=== PATIENT | male | born 1975 | race Caucasian/White ===

== ENCOUNTER 2017-05-11 13:01 | Emergency (ER) | payer MEDICARE, MEDICAID, SELFPAY ==
[2017-05-11 13:01] VITALS: BP 156/91; PULSE 133; RESP 16; TEMP 36.6; O2SAT 98; BMI 33.5
--- NOTE | 2017-05-11 13:20 | ED.DCSUM_ITS ---
- ER Visit Summary Date of Service: 05/11/17 Chief Complaint: Nausea and vomiting History of Present Illness: The patient is a 41 M who presents with nausea and vomiting. This started this morning. He had 3 episodes at home. He has not had any abdominal pain. Denies any diarrhea or constipation. He did have a bowel movement this morning. Family states he had an EGD at the [facility] as an outpatient last week and they said it showed something about the patient having a blockage and not being able to poop right Physical Examination: Vital signs reviewed. HEENT exam unremarkable. Heart is tachycardic and regular rhythm without murmurs. Lungs are clear to auscultation. Abdomen is soft and nontender. Extremities reveal no edema. Skin exam normal. Neurologic exam normal. Test Results: Laboratory studies reveal sodium 135, ALT of 130 and an AST 117 Emergency Department Course and Treatment: Patient was given IV fluids and Zofran. His liver enzymes are slightly elevated but they were as well a couple of years ago. His bilirubin is normal. I am no concern for gallbladder disease. He has no pain. The patient feels better after fluids and Zofran. I will give him Zofran for home. He will follow-up with his PCP. Treatment Plan: [] Disposition: Discharge Impression: Nausea and vomiting This note was generated with [employer] dictation software. It may contain incorrect words, spelling, and punctuation that were not noted in review of the chart prior to signing ED Disposition - Plan for ED Patient: Chief Complaint: Nausea/Vomiting Referrals: Erin Ji MD [Primary Care Provider] -
[2017-05-11] MEDS: 0.9% Normal Saline 1,000 ML 1000 ML IV (13:34)
[2017-05-11] MEDS: Ondansetron 4 MG/2 ML Vial IV (13:35)
[2017-05-11 13:54] LABS: Absolute Lymphocyte Count 1.95 X10^3/ul (0.83-4.51); Absolute Neutrophil Count 6.7 X10^3/uL (2.0-7.7); Basophil# 0.03 X10^3/uL; Basophil% 0.3 % (0-1); Eosinophil# 0.13 X10^3/uL; Eosinophils% 1.4 % (0-5); Hemoglobin 12.5 g/dl (13.0-16.5); Lymphocyte # 1.95 X10^3/ul (4.0); Lymphocyte % 20.4 % (19-41); Mean Corp Hgb Conc 35.7 g/gl (32-36); Mean Corpuscular Hgb 32.1 pg (27.0-32.0); Mean Platelet Vol. 9.1 fl (6.2-12.0); Monocyte# 0.67 X10^3/uL; Neutrophil # 6.74 X10^3/uL (2.7-7.7); Neutrophil % 70.7 % (47-70); Platelet Count 204 K/mm3 (150-450); RBC Distribution Width CV 12.3 % (11.6-14.6); RBC Distribution Width SD 39.9 fl (35.1-43.9); Red Blood Count 3.89 M/mm3 (4.6-6.2); White Blood Count 9.5 K/mm3 (4.4-11.0)
[2017-05-11 13:58] LABS: POSITIVE COUNT NO; POSITIVE DIFFERENTIAL NO; POSITIVE MORPHOLOGY NO
[2017-05-11 14:07] LABS: ALB/GLOB Ratio 0.8 RATIO (0.9-2.4); AST(SGOT) 117 U/L (15-37); Alanine Aminotransfer ALT/SGPT 138 U/L (16-61); Albumin, Serum 3.5 g/dL (3.2-5.0); Alkaline Phosphatase 76 U/L (45-117); Anion Gap 9 (5-15); BUN 21 mg/dL (7-18); BUN/Creat Ratio 24.9 RATIO (10-20); Calcium,Total 9.6 mg/dL (8.5-10.1); Chloride 99 mmol/L (98-107); Creatinine, Serum 0.84 mg/dL (0.70-1.30); EST Glomerular Filtration Rate 106 mL/min (>60); Est Glom Filt Rate - Afr Amer 128 mL/min (>60); Estimated Creatinine Clearance 118.29 ml/min; Globulin 4.3 g/dL (2.2-4.2); Glucose 191 mg/dL (74-106); Lipase 119 U/L (73-393); Protein, Total 7.8 g/dL (6.4-8.2); Sodium Level 135 mmol/L (136-145)
--- NOTE | 2017-05-11 14:59 | ED.DEP ---
ED Disposition - Plan for ED Patient: Disposition: Home or Assisted Living Chief Complaint: Nausea/Vomiting Instructions: ED Nausea Vomiting Prescriptions: Ondansetron [Zofran Odt] 4 mg PO Q8H PRN PRN #10 tab PRN Reason: Nausea Referrals: Erin Ji MD [Primary Care Provider] -
[2017-05-11 15:01] VITALS: PULSE 120; RESP 18; O2SAT 94
[2017-05-11 15:10] VITALS: BP 170/94; PULSE 118; RESP 16; O2SAT 96
--- NOTE | 2017-05-11 15:10 | ED.RN ---
REVIEWED D/C INSTRUCTIONS, FOLLOW UP CARE, PRESCRIPTION, AND S/S THAT WOULD WARRANT A RETURN TO THE ED WITH PT. PT VERBALIZED AN UNDERSTANDING AND DENIES FURTHER QUESTIONS FOR THIS RN PT SKIN P/W/D, RESP EVEN AND UNLABORED, PT A&O X 3, NO DISTRESS NOTED. PT AMBULATED OUT OF ED, GAIT STEADY.
== END 2017-05-11 15:12 | disposition home or self-care (01) ==
PROVIDERS: Emergency Provider Emergency Medicine; Family Provider Internal Medicine; PCP Internal Medicine
DX: R11.2 Nausea with vomiting, unspecified (principal); E11.9 Type 2 diabetes mellitus without complications; Z79.4 Long term (current) use of insulin; Z79.899 Other long term (current) drug therapy
CPT/HCPCS: 80053; 83690; 85025; 96361; 96374; 99283; J7030; A4216; J2405

== ENCOUNTER 2017-10-14 16:31 | Emergency (ER) | payer MEDICARE, MEDICAID, SELFPAY ==
[2017-10-14 16:32] VITALS: BP 146/84; PULSE 108; RESP 16; TEMP 36.3; O2SAT 97; BMI 34.5
[2017-10-14] MEDS: 0.9% Normal Saline 1,000 ML 1000 ML IV (17:20)
--- NOTE | 2017-10-14 17:30 | US_ITS ---
STUDY: ABDOMINAL ULTRASOUND - RIGHT UPPER QUADRANT REASON FOR VISIT: Male, 41 years old. Right upper quadrant pain TECHNIQUE: Ultrasound evaluation of the right upper quadrant was performed with real-time and static ospina-scale imaging. TECHNICAL QUALITY: Adequate. COMPARISON: None. FINDINGS: Liver: The liver measures 15.6 cm. There is normal echogenicity of the liver. The bile ducts are within normal limits. There is hepatic color flow. The direction of portal flow is hepatopetal. There is no demonstrated mass lesion. Gallbladder: Normal distended gallbladder. The gallbladder wall measures 1.7 mm. There is a negative sonographic Moyer's sign. There is no pericholecystic fluid. There are multiple gallstones with sludge. Common Bile Duct (C.B.D.): The common bile duct measures 3.3 mm. Pancreas: Limited of the pancreas. Right Kidney: Normal size of the right kidney. The right kidney measures 13.3 x 5.8 x 5.9 cm. Normal renal cortex. The right cortex measures 2.8 cm. There is no demonstrated renal mass or cyst. There is no right hydronephrosis. US/Gallbladder IMPRESSION: Cholelithiasis with gallbladder sludge. Electronically Signed: Anders De La Cruz DO at 18:14 EDT Tel [phone], Service support ,
[2017-10-14 17:42] LABS: Mucous, Urine 0 SEEN /hpf (<or=2+); Red Blood Cells-Urine 0 SEEN /hpf (0-5); Squamous Epithelial Cells - UA 0 SEEN /hpf (0-5); White Blood Cells 0 SEEN /hpf (0-5)
[2017-10-14 17:51] LABS: Color, Urine Yellow (Yellow); Glucose, Dipstick 1000 mg/dl (Normal); Ketone-Dipstick Negative (Negative); Leukocyte Esterase-Dipstick Negative /ul (Negative); Nitrite-Dipstick Negative (Negative); Occult Blood-Urine Negative /ul (Negative); Protein-Dipstick 30 mg/dl (Negative); Specific Gravity, Urine 1.015 (1.002-1.030); Urine Bilirubin Dipstick Negative (Negative); Urine Clarity Sl. Cloudy (Clear); Urine Urobilinogen Normal (Normal)
[2017-10-14 17:52] LABS: Absolute Lymphocyte Count 2.27 X10^3/ul (0.83-4.51); Absolute Neutrophil Count 5.6 X10^3/uL (2.0-7.7); Basophil# 0.03 X10^3/uL; Basophil% 0.4 % (0-1); Eosinophil# 0.05 X10^3/uL; Eosinophils% 0.6 % (0-5); Hematocrit 37.5 % (40-54); Hemoglobin 13.1 g/dl (13.0-16.5); Lymphocyte # 2.27 X10^3/ul (4.0); Lymphocyte % 26.9 % (19-41); Mean Corp Hgb Conc 34.9 g/gl (32-36); Mean Corpuscular Hgb 31.9 pg (27.0-32.0); Mean Corpuscular Volume 91.2 fL (80-94); Mean Platelet Vol. 9.2 fl (6.2-12.0); Monocyte# 0.45 X10^3/uL; Monocyte% 5.3 % (0-10); Neutrophil # 5.64 X10^3/uL (2.7-7.7); Neutrophil % 66.7 % (47-70); Platelet Count 211 K/mm3 (150-450); RBC Distribution Width CV 13.1 % (11.6-14.6); RBC Distribution Width SD 43.1 fl (35.1-43.9); Red Blood Count 4.11 M/mm3 (4.6-6.2); White Blood Count 8.5 K/mm3 (4.4-11.0)
[2017-10-14 17:54] LABS: POSITIVE COUNT NO; POSITIVE DIFFERENTIAL NO; POSITIVE MORPHOLOGY NO
[2017-10-14 17:59] LABS: AST(SGOT) 51 U/L (15-37); Alanine Aminotransfer ALT/SGPT 92 U/L (16-61); Albumin, Serum 3.7 g/dL (3.2-5.0); Alkaline Phosphatase 87 U/L (45-117); Anion Gap 8 (5-15); BUN 38 mg/dL (7-18); BUN/Creat Ratio 31.7 RATIO (10-20); Bilirubin, Direct 0.12 mg/dL (0.00-0.30); Calcium,Total 9.6 mg/dL (8.5-10.1); Chloride 97 mmol/L (98-107); EST Glomerular Filtration Rate 70 mL/min (>60); Est Glom Filt Rate - Afr Amer 85 mL/min (>60); Estimated Creatinine Clearance 80.19 ml/min; Globulin 4.7 g/dL (2.2-4.2); Glucose 338 mg/dL (74-106); Lipase 332 U/L (73-393); Potassium 4.6 mmol/L (3.5-5.1); Protein, Total 8.4 g/dL (6.4-8.2); Sodium Level 132 mmol/L (136-145)
[2017-10-14 18:21] LABS: Bacteria 1+ /hpf (None Seen); Hyaline Cast 0-5 SEEN /lpf (0-5)
--- NOTE | 2017-10-14 18:32 | ED.VISSUMM ---
- ER Visit Summary Date of Service: 10/14/17 Chief Complaint: Abdominal pain History of Present Illness: The patient is a [address] Ji. He is a poor informant. The majority of history is through family members with him. They report that his abdominal pain for approximately 3 months. Patient reports is not having any pain now. He denies any nausea or vomiting. He reports he has diarrhea alternating with constipation. His last bowel was yesterday. He reports he last vomited earlier this week after eating hot dogs. His most severe symptoms have been after eating hero house. Family does report that he has a history of fatty food intolerance. Patient denies any spotty seafood intolerance. Physical Examination: Vitals: Stable. Afebrile. General: Well-nourished and well-developed. Head: Normocephalic atraumatic. Neck: Supple, no lymphadenopathy. No JVD. Nontender. Cardiovascular: Regular rate and rhythm. No murmurs. Respiratory: No respiratory distress. Clear to auscultation bilaterally. Abdominal: Soft, nontender, nondistended, normal bowel sounds. No guarding, rebound, or peritoneal signs. Back: Nontender. Extremities: Nontender, no edema. Skin: Normal color, no rash. Neurologic: Alert and oriented ?3. Cranial nerves II through XII are intact. Normal strength and sensation. Psych: Normal affect. Test Results: CBC is more for hematocrit 37.5. Chem-7 is more for sodium 132, chloride 97, glucose 338, BUN 38, BUN/creatinine ratio 31.7. LFTs marked total protein 8.4 globulin 4.7. ALT is 92, AST is 51. Lipase is normal. UA is negative. Right upper quadrant ultrasound shows normal distended gallbladder with wall of 1.7 mm. No pericholecystic fluid. No Moyer sign. There are multiple gallstones with sludge. The common bile duct is 3.3 mm. Emergency Department Course and Treatment: Patient refused pain or nausea medications. He is resting comfortably. Treatment Plan: Patient was discussed with Dr. Contreras. He will be discharged instructions follow-up in 3-5 days for repeat exam. Be placed on Zofran for his nausea. I do not think putting him on pain medications is in his best interest. Return to the emergency department for any worsening symptoms. Disposition: To home in improved and stable condition. Impression: 1. Abdominal pain, uncertain cause. 2. Gallstones. This note was generated with [employer] dictation software. It may contain incorrect words, spelling, and punctuation that were not noted in review of the chart prior to signing ED Disposition - Plan for ED Patient: Disposition: Home or Assisted Living Chief Complaint: Abd Pain Instructions: ED Abdominal Pain Gallstone Poss Prescriptions: Ondansetron [Zofran Odt] 4 mg PO Q8H PRN PRN #10 tablet PRN Reason: Nausea Referrals: Cris Anna MD [STAFF PHYSICIAN] - 5-7 Days
[2017-10-14 18:33] VITALS: BP 122/80; PULSE 101; RESP 16; O2SAT 97
== END 2017-10-14 18:45 | disposition home or self-care (01) ==
PROVIDERS: Emergency Provider Emergency Medicine; Family Provider Internal Medicine; PCP Internal Medicine
DX: K80.80 Other cholelithiasis without obstruction (principal); R10.11 Right upper quadrant pain; E11.9 Type 2 diabetes mellitus without complications; I10 Essential (primary) hypertension; E78.00 Pure hypercholesterolemia, unspecified; Z79.4 Long term (current) use of insulin; Z79.84 Long term (current) use of oral hypoglycemic drugs; Z79.899 Other long term (current) drug therapy
CPT/HCPCS: 76705; 80048; 80076; 81001; 83690; 85025; 96360; 99283; J7030

== ENCOUNTER 2017-10-27 05:25 | Day surgery (SDC) | payer MEDICARE, MEDICAID, SELFPAY ==
[2017-10-24 11:26] VITALS: BP 118/74; PULSE 102; RESP 16; TEMP 36.8; O2SAT 97; BMI 34.0
--- NOTE | 2017-10-24 11:31 | SDCEKG_ITS ---
Test Reason : Blood Pressure : / mmHG Vent. Rate : 103 BPM Atrial Rate : 103 BPM P-R Int : 162 ms QRS Dur : 094 ms QT Int : 322 ms P-R-T Axes : 054 033 057 degrees QTc Int : 421 ms Sinus tachycardia Otherwise normal ECG Confirmed by FAVIO MOBLEY, KVNG ([id number]), business editor IVIS BAE ([id number]) on 10/25/2017 1:28:37 PM Referred By: Cris Anna Confirmed By:KVNG STAHL MD
[2017-10-24 12:31] LABS: Anion Gap 8 (5-15); BUN 24 mg/dL (7-18); BUN/Creat Ratio 21.4 RATIO (10-20); Calcium,Total 9.1 mg/dL (8.5-10.1); Chloride 102 mmol/L (98-107); Creatinine, Serum 1.12 mg/dL (0.70-1.30); EST Glomerular Filtration Rate 76 mL/min (>60); Est Glom Filt Rate - Afr Amer 92 mL/min (>60); Estimated Creatinine Clearance 85.92 ml/min; Glucose 308 mg/dL (74-106); Potassium 4.6 mmol/L (3.5-5.1); Sodium Level 137 mmol/L (136-145)
[2017-10-27] VITALS (12 sets, daily range): BP systolic 105–160; BP diastolic 65–91; PULSE 96–109; RESP 16–20; TEMP 35.9–36.5; O2SAT 92–100; BMI 32.8
[2017-10-27 06:30] LABS: Bedside Glucose 323 mg/dL (70-110)
[2017-10-27] MEDS: Insulin Lispro 100 UNIT/ML INSULN.PEN 8 UNIT SC (07:10)
--- NOTE | 2017-10-27 07:30 | GALL_PTH ---
PATIENT: MICAELA WAGNER LOC: [facility] [place] U#:[id number] AGE/SX: 41/M ROOM: RE10/27/[address]: Dr. Cris Anna MD : 1975 BED: DIS: 10/27/2017 SPEC #: [id number] RECD: 10/27/17 10:52 STATUS: RENE RE #: [id number] NANY: 10/27/17 07:[address]: Cris Anna DEPT: SURGICAL PATHOLOGY RECD BY: Fernandez Montemayor ENTERED: 10/27/17 11:57 SP TYPE: STACIA SHULTZ DR: Dr. Erin Ji MD Tissues: Gallbladder, NOS Procedures: Surgery Specimen Level III HEADER OPERATION: Laparoscopic cholecystectomy PRE-OP DIAGNOSIS: Calculus of gallbladder without cholecystitis and obstruction TISSUE SUBMITTED: Gallbladder MICROSCOPIC DIAGNOSIS Gallbladder: Chronic cholecystitis and cholelithiasis. SJ:norma 10/28/17 MICROSCOPIC DESCRIPTION Slides are reviewed. GROSS DESCRIPTION Received is one container labeled with the patient's name and designated gallbladder. The specimen consists of a gallbladder measuring 8 cm in length and 3.5 cm in diameter. An increased amount of subserosal fat is noted. The external surface is pink-campbell, smooth and glistening for the most part. Focally it is granular, hemorrhagic and contains cautery artifact. The gallbladder contains green-yellow mucoid bile and multiple black irregular friable stones and sludge material. The stones measure in aggregate 1 x 0.5 x 0.3 cm and 0.2 to 0.4 cm in greatest dimension. The mucosa is bile-stained and without any mass lesions. The gallbladder wall measures up to 0.3 cm in thickness. Instrument Lens Inspector sections from the gallbladder and the cystic duct are submitted in one cassette. / SJ:norma 10/27/17 TC:3 CPT: 74477
[2017-10-27 08:10] LABS: Bedside Glucose 292 mg/dL (70-110)
--- NOTE | 2017-10-27 08:21 | PCM.PN.BLA ---
Progress Note PAT nurses had told my clinic nurses that procedure was cancelled. I spoke with patient, his father, and his fiance - and explained the above. Patient's father questions the risk of diabetes - I explained that patient is at increased risk for infection and wound healing problems because his diabetes is out of control. I have offered to postpone surgery until the patient's diabetes is under better control, but the patient refuses this. The father states that the patient continues to throw up and can't take his meds because of this and that is why he needs surgery. I have explained to them that the patient has diabetic gastroparesis and that is why he is throwing up and that his glucoses are too high because of his po intake. The family states that his glucoses are out of control because of his diabetes. I have told them that I will offer to remove the gallbladder and with the following risks of surgery: I have counseled the patient as to the risks of the procedure, including but not limited to: infection, bleeding, injury to any blood vessels/nerves, scar tissue, injury to any intraabdominal organs, injury to kidney/ureters, injury to bowel/bladder, injury to the common bile duct/biliary tree, bile leakage, intraabdominal abscess/bleeding, hernias at incisional sites, wound infections, possible open procedure, complications of anesthesia, postoperative pneumonia/cardiac problems/blood clots etc. the patient understands. I have told them that removing the gallbladder may not alleviate his emesis problems and/or correct his diabetes problems. They state that they understand. I have answered all questions to their and they have no further questions.
--- NOTE | 2017-10-27 08:30 | OP.PN_ITS ---
Immediate Post-Op Note Date of Procedure: 10/27/17 Primary Surgeon/Physician: Cris Anna tooth cutter clutch: America Alves Pre-Operative Diagnosis: cholelithiasis Post-Operative Diagnosis: same Surgery/Procedure Performed:: laparoscopic cholecystectomy Description of Surgical Findings:: cholelithiasis Estimated Blood Loss: < 5 ml Specimen's removed: gallbladder and contents Type of Anesthesia:: General ASA Class: ASA3 Severe Disease - Admit VTE Documentation VTE Present on Admission: Yes VTE Mechan Device Prophylaxis: SCD's
--- NOTE | 2017-10-27 08:32 | PCM.DC.GB ---
Discharge Diet: - - diabetic diet Discharge Activity: Return to Normal Activity, May not drive while taking narcotic pain medications. Lifting Restrictions: no lifting greater than 20 pounds for 2 weeks Call your doctor if your incision/area has: Continuous Slow Oozing, Foul Smelling Discharge Call your doctor if you observe: Fever of 101 or Higher Additional Dressing/Incision Instructions:: Leave dressings in place. May get wet in shower. Do not soak - no tub baths/swimming. If dressings become soiled or saturated - may remove - leave wound open to air (do not place bandaids over the wounds), leave steristrips in place Allergies/Adverse Reactions: Allergies liraglutide [From Victoza] Allergy (Severe, Verified 10/24/17 11:05) Vomiting Medications to take at Discharge Enalapril Maleate [Vasotec] 20 mg PO DAILY 05/15/15 insulin aspart U-100 100 unit/mL subcutaneous pen 20 unit SC BID ml 04/07/17 liraglutide 0.6 mg/0.1 mL (18 mg/3 mL) subcutaneous pen injector 0.6 mg SC QDAY 04/07/17 metformin 1,000 mg tablet 500 mg PO DAILY 04/07/17 Insulin Degludec [Tresiba Flextouch U-100] 80 unit SQ DAILY 05/11/17 Omeprazole [Omeprazole] 40 mg PO BID 05/11/17 Atorvastatin Calcium [Lipitor] 20 mg PO QHS 10/14/17 Ondansetron [Zofran Odt] 4 mg PO Q8H PRN PRN #10 tablet 10/14/17 Metoclopramide [Reglan] 10 mg PO TID 10/24/17 Hydrocodone Bitart/Apap 5-325 [[place] 5MG-325MG] 1 tab PO Q6H PRN PRN 5 Days #20 tab 10/27/17 The following prescriptions were given: Hydrocodone Bitart/Apap 5-325 [[place] 5MG-325MG] 1 tab PO Q6H PRN PRN 5 Days #20 tab PRN Reason: Pain Primary Care Physician: Erin Ji MD [Primary Care Provider] - Test Results: Test results from this visit will be discussed in further detail at your follow-up appointment, if applicable. Please Follow Up With: Cris Anna MD - call When: to be seen in 7-10 days, please call for date and time, thank you
[2017-10-27] MEDS: Bupiv/Epi 0.5% Mpf 30 ML Vial (09:10)
--- NOTE | 2017-10-27 09:36 | OP.PCM_ITS ---
Report of Operation Date of Procedure: 10/27/17 Pre-Operative Diagnosis: cholelithiasis Post-Operative Diagnosis: same Surgery/Procedure Performed:: laparoscopic cholecystectomy Description of Surgical Findings:: cholelithiasis, minimal cholecystitis vice president of compliance: America Alves Type of Anesthesia:: General Anesthesiologist: Danish Bocanegra Specimen's removed: gallbladder and contents Estimated Blood Loss (mL): < 5 ml Fluids Replaced: 1500 ml RL Description of Procedure: After informed consent was given, the patient was brought to the Operating Room and placed in the supine position. Appropriate time out protocol was followed. The patient was then placed under general endotracheal anesthesia. The abdomen was then prepped with a sterile surgical skin preparation and sterile surgical drapes were placed. A skin fold superior to the umbilical dimple was grasped with penetrating clamps and the skin and subcutaneous tissues were infiltrated with local anesthetic. A skin incision was then made with a 15 blade scalpel. The anterior abdominal wall was elevated and a Veress needle was carefully inserted into the intraabdominal cavity. It was checked to be in the proper position with a normal saline drop test. A CO2 pneumoperitoneum was then created. Once this was achieved, then the Veress needle was removed and an 11mm trocar was placed in its stead. A 10mm laparoscope was then inserted into the trocar and careful attention was directed to the intraabdominal contents. There was no evidence of injury to any intraabdominal organs from insertion of the Veress needle or the trocar. Under direct visualization, a 5mm subxiphoid trocar and two lateral 5mm right subcostal trocars were placed. The skin and subcutaneous tissues at these sites were infiltrated with local anesthetic prior to placement of these trocars. Attention was then directed to the right upper quadrant of the abdomen. The gallbladder was noted. Graspers were placed in the lateral trocars to grasp the distal aspect of the gallbladder and direct it cephalad and to grasp the gallbladder at Francois?s pouch and direct it laterally. Dissection then began on the proximal gallbladder continuing down to the area of the triangle of Calot to bluntly dissect out the cystic duct. The neck of the gallbladder was identified and blunt dissection continued to dissect out a segment of the cystic duct. A clip was then placed on the neck of the gallbladder. Two clips were placed proximally and the cystic duct was then transected. The cystic artery was visualized and bluntly isolated and then two clips were placed proximally and one clip distally and then it was transected between the proximal and distal clips. The gallbladder was then from the liver bed using electrocautery and thus able to be brought out of the umbilical port. It was then forwarded to pathology for analysis. The liver bed was carefully examined. There was no evidence of bile leakage or bleeding. The cystic duct stump and cystic artery stump had their clips intact and there was no evidence of bile leakage or bleeding. The remainder of the abdomen was grossly normal. The CO2 was released and all trocars removed intact. The periumbilical fascia was approximated with a [id number] 0 vicryl suture. All skin incision were closed with 4-0 monocryl in a subdermal fashion. Cavilol and Steristrips were used to reinforce the skin closure. Sterile dressings were applied to all wounds. The patient was extubated and brought to the Recovery Room in stable condition. - Complications none noted - Admit VTE Documentation VTE Present on Admission: Yes VTE Mechan Device Prophylaxis: SCD's
[2017-10-27 10:01] LABS: Bedside Glucose 321 mg/dL (70-110)
--- NOTE | 2017-10-27 10:16 | SUR.PHASEI ---
Addendum entered by Adelina Flowers 10/27/17 11:58: 1155: straight cathed for 650cc tracie urine using at 15fr st cath. pt tolerated well. pt states he does not think he can go home and would like to be admitted. T/C to Dr Anna, as long as pt meets ac criteria he can go home. explained to pt that we will send him back to his room but that does not mean that he needs to leave at this time. will let him stay until he is able to function a little better Original Note: Addendum entered by Adelina Flowers 10/27/17 10:53: 1050: pt states he needs to pee, unable to void. bladder scanned for 731. Dr Anna called, waiting for her to call back. Original Note: pt very restless in bed. unable to keep ekg leads or pulse ox on continously.
[2017-10-27 11:06] LABS: Bedside Glucose 317 mg/dL (70-110)
[2017-10-27] MEDS: Ondansetron 4 MG/2 ML Vial IV (12:47)
== END 2017-10-27 14:29 | disposition home or self-care (01) ==
LOC: SDC 05:26 → AC 05:26
PROVIDERS: Anesthesiology; Family Provider Internal Medicine; PCP Internal Medicine; Visit Provider Surgery
PROC: (CPT 47610; principal; 2017-10-27 07:10)
DX: K80.10 Calculus of gallbladder with chronic cholecystitis without obstruction (principal); K21.9 Gastro-esophageal reflux disease without esophagitis; E11.43 Type 2 diabetes mellitus with diabetic autonomic (poly)neuropathy; K31.84 Gastroparesis; E11.65 Type 2 diabetes mellitus with hyperglycemia; E66.09 Other obesity due to excess calories; Z68.33 Body mass index [BMI] 33.0-33.9, adult; E78.00 Pure hypercholesterolemia, unspecified; F81.89 Other developmental disorders of scholastic skills; Z79.4 Long term (current) use of insulin; Z79.84 Long term (current) use of oral hypoglycemic drugs; Z79.899 Other long term (current) drug therapy
CPT/HCPCS: 47562; 80048; 82962; 83036; 88304; 93005; J7120; J2405

== ENCOUNTER 2019-07-25 17:24 | Inpatient (IN) | payer MEDICARE, MEDICAID, SELFPAY ==
[2018-04-18 11:13] VITALS: BMI 33.5
[2019-07-25] VITALS (22 sets, daily range): BP systolic 103–168; BP diastolic 58–93; PULSE 96–124; RESP 12–34; TEMP 38–39.2; O2SAT 83–99; BMI 31.8; BMI 32.1
--- NOTE | 2019-07-25 17:35 | EKG12_ITS ---
Test Reason : SOB Blood Pressure : / mmHG Vent. Rate : 125 BPM Atrial Rate : 125 BPM P-R Int : 122 ms QRS Dur : 074 ms QT Int : 298 ms P-R-T Axes : 050 -29 043 degrees QTc Int : 430 ms Sinus tachycardia Septal infarct , age undetermined Abnormal ECG Confirmed by LATIA MOBLEY, CHRISTOPHER ([id number]), production editor IVIS BAE ([id number]) on 07/30/2019 10:55:56 AM Referred By: KEEGAN Confirmed By:JOSEFA JEFFERY MD
[2019-07-25] MEDS: Ondansetron 4 MG/2 ML Vial IV (17:47)
[2019-07-25 17:54] LABS: Absolute Lymphocyte Count 0.41 X10^3/uL (0.83-4.51); Absolute Neutrophil Count 5.8 X10^3/uL (2.0-7.7); Basophil# 0.01 X10^3/uL; Basophil% 0.2 % (0-1); Hematocrit 40.1 % (40-54); Hemoglobin 13.2 g/dL (13.0-16.5); Lymphocyte # 0.41 X10^3/ul (4.0); Lymphocyte % 6.3 % (19-41); Mean Corp Hgb Conc 32.9 g/dL (32-36); Mean Corpuscular Hgb 29.4 pg (27.0-32.0); Mean Corpuscular Volume 89.3 fL (80-94); Mean Platelet Vol. 9.3 fl (6.2-12.0); Monocyte# 0.24 X10^3/uL; Monocyte% 3.7 % (0-10); NRBC Flagged by Analyzer 0 % (0-5); Neutrophil # 5.81 X10^3/uL (2.7-7.7); Neutrophil % 89.2 % (47-70); POSITIVE DIFFERENTIAL YES; POSITIVE MORPHOLOGY YES; Platelet Count 104 K/mm3 (150-450); RBC Distribution Width CV 13.3 % (11.6-14.6); RBC Distribution Width SD 43.8 fl (35.1-43.9); Red Blood Count 4.49 M/mm3 (4.6-6.2); White Blood Count 6.5 K/mm3 (4.4-11.0)
[2019-07-25 17:56] LABS: Differential Indicated SCAN CRITERIA MET
[2019-07-25] MEDS: 0.9% Normal Saline 1,000 ML 150 ML IV (17:56)
[2019-07-25 17:58] LABS: International Normalized Ratio 1.1; Prothrombin Time (Protime)PT. 13.8 SECONDS (11.7-14.9)
[2019-07-25 17:59] LABS: Partial Thromboplast Time 35.4 Seconds (24.1-36.2)
[2019-07-25 18:11] LABS: ALB/GLOB Ratio 0.8 RATIO (0.9-2.4); AST(SGOT) 70 U/L (15-37); Alanine Aminotransfer ALT/SGPT 53 U/L (16-61); Albumin, Serum 3.5 g/dL (3.2-5.0); Alkaline Phosphatase 72 U/L (45-117); Anion Gap 9 (5-15); BUN 54 mg/dL (7-18); BUN/Creat Ratio 35.3 RATIO (10-20); Calcium,Total 9.2 mg/dL (8.5-10.1); Chloride 100 mmol/L (98-107); Creatinine, Serum 1.53 mg/dL (0.70-1.30); EST Glomerular Filtration Rate 53 mL/min (>60); Est Glom Filt Rate - Afr Amer 64 mL/min (>60); Estimated Creatinine Clearance 65.62 ml/min; Globulin 4.5 g/dL (2.2-4.2); Glucose 126 mg/dL (74-106); Potassium 3.9 mmol/L (3.5-5.1); Sodium Level 133 mmol/L (136-145)
[2019-07-25 18:21] LABS: Differential Comment SCANNED
[2019-07-25] MEDS: Acetaminophen 500 MG Tablet 1000 MG PO (18:21)
--- NOTE | 2019-07-25 18:27 | RAD_ITS ---
STUDY: X-RAY CHEST REASON FOR EXAM: Male, 43 years old. Cough since Tuesday with fever on and off TECHNIQUE: Single AP portable view of the chest. COMPARISON: None. FINDINGS: Normal lung volumes. Widespread bilateral patchy pulmonary infiltrates, most pronounced in the right lung base. Findings are indeterminate and nonspecific and could represent pulmonary edema or multifocal pneumonia. Correlate clinically. No gross effusions. Normal size heart. Normal mediastinum and yudy. Normal visualized pulmonary arteries. Normal visualized aortic arch and descending thoracic aorta. Normal visualized thoracic spine. Normal visualized ribs, clavicles, and shoulders. There is no demonstrated abnormality of the visualized soft tissue structures of the upper abdomen. RAD/Chest 1 View (Portable) IMPRESSION: Widespread bilateral patchy pulmonary infiltrates, most pronounced in the right lung base. Findings are nonspecific and could represent pulmonary edema or multifocal pneumonia. Electronically Signed: Bright Harrison MD at 19:05 EDT , Service support ,
[2019-07-25 18:32] LABS: Lactic Acid 2.4 mmol/L (0.4-1.9)
--- NOTE | 2019-07-25 18:33 | CPS ---
SENIOR PRINCIPAL PROCESS ENGINEER tried to obtain ABG x2. Test was tried on 6L NC. Patient in precautions. Pulse ox maintaining >85%. SENIOR PRINCIPAL PROCESS ENGINEER placed on AirVo 30L 70% 37 F per ER physician's verbal order. aware that SENIOR PRINCIPAL PROCESS ENGINEER unable to obtain baseline ABG.
--- NOTE | 2019-07-25 18:39 | ED.DCSUM_ITS ---
History of Present Illness Chief Complaint: Shortness of Breath Informant: Patient, SNF Onset: Days - 5 Narrative: Brought by EMS from [facility] for fever and hypoxia. Patient history of diabetes has been at the facility shortly after April when he had a right great toe amputation at [facility]. He is ambulating, reports still at the facility due to difficulty trying to get him to place to stay, previously stayed with his ex-. Reports productive cough for the past 5 days intermittent fevers. Yesterday noted hemoptysis. He denies any anticoagulation medicines or tobacco. Today had one emesis, reports nursing checked reported he had a temp of 99, EMS reports temp of 101 tympanic. Patient denies chest pains or shortness of breath however he was noted to be hypoxic in the 80s on 2 L EMS placed on 4 L and is still in the mid 80s. Reports there has been COVID exposure at the facility. He denies any asthma or COPD or any cardiac history. Past Medical History - Allergies and Home Meds Allergies/Adverse Reactions: Allergies liraglutide [From Victoza] Allergy (Severe, Verified 07/25/19 18:00) Vomiting Past Medical History: - - Diabetes Surgical History: - - unknown as patient is a poor historian. Smoking Status: Never smoker - Family History Maternal Family History: Family History (Last Reviewed 07/25/19 @ 23:[address] Talib Trujillo MD) Mother Diabetes Father Diabetes Family History: Reports: No pertinent history, - - patient is a poor historian. Review of Systems General: Reports: Fever. Denies: Chills, Sweats Eyes: Denies: Visual changes - bilaterally, Diplopia ENT: Denies: Rhinorrhea, Sore throat Cardiovascular: Denies: Chest pain, Palpitations Respiratory: Reports: Cough, Sputum. Denies: Dyspnea, Dyspnea on exertion Gastrointestinal: Reports: Nausea, Vomiting. Denies: Abdominal pain, Diarrhea, Melena, Hematochezia Genitourinary: Denies: Dysuria, Hematuria, Frequency Musculoskeletal: Denies: Back pain, Extremity Pain Skin: Denies: Rash, Wounds Neurological: Denies: Headache, Weakness, Numbness Physical Exam Vital Signs/Narrative: Vital Signs Temp Pulse Resp BP Pulse Ox 07/25/19 17:59 124 H 22 H 90 07/25/19 17:38 100.4 F H 122 H 20 H 123/87 H 85 07/25/19 17:37 101.8 F H 119 H 20 H 123/87 H 87 07/25/19 17:24 101.8 F H 111 H 20 H 123/87 H 85 General: Well nourished, Well developed, No Acute Distress, - - Exam limited due to COVID pandemic. Head: Normocephalic, Atraumatic ENT: - - Face mass Neck: Supple, Nontender Cardiovascular: Regular rate, No murmurs, Tachycardia Respiratory: No distress Abdomen: Soft, Nontender, Nondistended, Normal bowel sounds Back: Nontender, Normal Inspection Extremities: Nontender, No edema, - - Amputated right great toe healed. Skin: Normal color, No rash Neurological: Alert, Oriented x3, Cranial nerves II-XII grossly intact, Normal Strength, Normal Sensation Psychological: Normal affect, Normal Mood Diagnostic/Tx/Re-eval Clinical Impression(s) from Imaging Studies Chest X-Ray 07/25/19 18:27 IMPRESSION: Widespread bilateral patchy pulmonary infiltrates, most pronounced in the right lung base. Findings are nonspecific and could represent pulmonary edema or multifocal pneumonia. Electronically Signed: Bright Harrison MD at 19:05 EDT , Service support , Abnormal Lab Results 07/25/19 07/25/19 07/25/19 17:35 17:35 17:35 WBC 6.5 RBC 4.49 L Hgb 13.2 Hct 40.1 MCV 89.3 MCH 29.4 MCHC 32.9 RDW Std Deviation 43.8 RDW Coeff of Ana 13.3 Plt Count 104 L MPV 9.3 Immature Gran % (Auto) 0.600 Neut % (Auto) 89.2 H Lymph % (Auto) 6.3 L [place] % (Auto) 3.7 Eos % (Auto) 0.0 Baso % (Auto) 0.2 Absolute Neuts (auto) 5.8 Absolute Lymphs (auto) 0.41 L Nucleated RBC % 0 Differential Comment SCANNED PT 13.8 INR 1.1 APTT 35.4 Sodium 133 L Potassium 3.9 Chloride 100 Carbon Dioxide 24.0 Anion Gap 9 BUN 54 H Creatinine 1.53 H Estim Creat Clear Calc 65.62 Est GFR (MDRD) Af Amer 64 Est GFR (MDRD) Non-Af 53 L BUN/Creatinine Ratio 35.3 H Glucose 126 H Lactic Acid Calcium 9.2 Total Bilirubin 0.70 AST 70 H ALT 53 Alkaline Phosphatase 72 Total Protein 8.0 Albumin 3.5 Globulin 4.5 H Albumin/Globulin Ratio 0.8 L 07/25/19 17:35 WBC RBC Hgb Hct MCV MCH MCHC RDW Std Deviation RDW Coeff of Ana Plt Count MPV Immature Gran % (Auto) Neut % (Auto) Lymph % (Auto) [place] % (Auto) Eos % (Auto) Baso % (Auto) Absolute Neuts (auto) Absolute Lymphs (auto) Nucleated RBC % Differential Comment PT INR APTT Sodium Potassium Chloride Carbon Dioxide Anion Gap BUN Creatinine Estim Creat Clear Calc Est GFR (MDRD) Af Amer Est GFR (MDRD) Non-Af BUN/Creatinine Ratio Glucose Lactic Acid 2.4 H* Calcium Total Bilirubin AST ALT Alkaline Phosphatase Total Protein Albumin Globulin Albumin/Globulin Ratio - Medical Decision Making Patient febrile, tachycardic on arrival. EKG is sinus. Sepsis work-up initiated, I did discuss with LDH to clear for COVID testing. He is in no respiratory distress however he was hypoxic, high flow oxygen was used maintain his oxygenation. Work-up initiated white count normal, lactic acid 2.4, chest x-ray concerns for bilateral pneumonia greater on the right side. He is a diabetic at a nursing facility, however lower suspicion any Pseudomonas concerns. He is covered with Rocephin and Zithromax. Creatinine up at 1.5 was given gentle fluids. Reevaluation, no respiratory distress. He was given Tylenol for his fever. I did discuss with belling machine operator, Dr. Henson, due to patient requiring high flow oxygen, will plan to place in ICU for continued management. He is on day 5 of symptoms. Currently hospitalist is on page for discussion for admission. I spoke with Dr. Trujillo for admission to ICU. - Critical Care Time Critical care time (excluding procedures): 30-74 minutes, Discussing w/Consultants, Arranging Admission or Transfer ED Disposition - Plan for ED Patient: Disposition: Acute Care Hospital [facility] Diagnosis: Severe sepsis, Bilateral pneumonia, Acute kidney injury, Suspected COVID-19 virus infection, Hypoxemia
--- NOTE | 2019-07-25 19:27 | HP.PCM_ITS ---
Problem List (1) Severe sepsis Status: Acute (2) Bilateral pneumonia Status: Acute (3) Acute kidney injury Status: Acute (4) Suspected COVID-19 virus infection Status: Acute (5) Hypoxemia Status: Acute (6) MRSA infection Status: Inactive Comment: A49.02 History of Present Illness Date of Admission: 07/25/19 Chief Complaint: Hemoptysis The patient is a 43 year old M with a significant history of diabetes mellitus and who lives at [facility] presenting with hemoptysis that started a day before presentation. Associated with symptoms is a fever and shortness of breath. At emergency department patient had a T-max of 102.5 Fahrenheit. He was tachycardic and tachypneic. Chest x-ray showed widespread bilateral patchy pulmonary infiltrates, most pronounced in the right lung base. Emergency department doctor discussed the case with the finishing technician. Past Medical History Medical History: Medical History (Last Reviewed 07/25/19 @ 23:[address] Talib Trujillo MD) Diabetes type 2, controlled E11.9 Dx : 2001 Last exacerbation : DKA : never Hypoglycemic episode : never ER visit : never Fracture of left great toe S92.402A H/O methicillin resistant Staphylococcus aureus Z86.14 H/O osteomyelitis Z87.39 Mild mental retardation F70 Morbid obesity E66.01 complex necrotic diabetic ulcer abscess R thumb laser eye surgery Allergies liraglutide [From Victoza] Allergy (Severe, Verified 07/25/19 18:00) Vomiting Home Medications: Ambulatory Orders Medication Instructions Recorded Atorvastatin Calcium [Lipitor] 20 mg PO QHS 10/14/17 Ondansetron [Zofran Odt] 4 mg PO Q8H PRN PRN #10 tab 10/14/17 Acetaminophen [Pain Relief] 650 mg PO Q4H PRN PRN 07/25/19 Colesevelam Hydrochloride [Welchol] 625 mg PO BID 07/25/19 Empagliflozin [Jardiance] 10 mg PO DAILY 07/25/19 Furosemide [Lasix] 20 mg PO DAILY 07/25/19 Guaifenesin [Robitussin] 10 ml PO Q4H PRN PRN 07/25/19 Insulin Glargine,Hum.rec.anlog 50 unit SQ DAILY 07/25/19 [Lantus] Loperamide [Imodium] 2 mg PO TID PRN PRN 07/25/19 Omeprazole 40 mg PO BID 07/25/19 Surgical History: Surgical History (Last Reviewed 07/25/19 @ 23:[address] Talib Trujillo MD) History of incision and drainage Z98.890 Hx of cholecystectomy Z90.49 S/P excisional debridement Z98.890 Surgical History: - - unknown as patient is a poor historian. Smoking Status: Never smoker - *Family History Maternal Family History: Family History (Last Reviewed 07/25/19 @ 23:[address] Talib Trujillo MD) Mother Diabetes Father Diabetes History Items: No pertinent history, - - patient is a poor historian. Review of Systems Constitutional: Reports: Fever. Denies: Chills, Weight Change HEENT: Denies: Head Aches, Sinus Congestion, Sinus Drainage Cardiovascular: Denies: Chest Pain, Palpitations Respiratory: Reports: Cough, Hemoptysis, Shortness of Breath Gastrointestinal: Denies: Abdominal Pain, Nausea, Vomiting Genitourinary: Denies: Dysuria Musculoskeletal: Denies: Joint Pain, Joint Tenderness Skin: Denies: Rash, Wounds Neurological: Denies: Numbness, Tingling, Focal weakness Psychiatric: Denies: Anxiety, Depression, Homicidal Ideations, Suicidal Ideations Hematologic/ Lymphatic: Denies: Easy Bruising, Easy Bleeding VTE Information - Inpt Only VTE Present on Admission: No VTE Mechan Device Prophylaxis: SCD's VTE Pharm Prophylaxis ordered?: No Patient Problems: Active and Suspected Problems (Last Reviewed 07/25/19 @ 23:[address] Talib Trujillo MD) Severe sepsis (Acute) Bilateral pneumonia (Acute) Acute kidney injury (Acute) Suspected COVID-19 virus infection (Acute) Hypoxemia (Acute) - Physical Exam Vitals/I&O's: Vital Signs Temp Pulse Resp BP Pulse Ox 101.8 F H 117 H 20 H 168/93 H 93 07/25/19 18:59 07/25/19 19:00 07/25/19 19:00 07/25/19 19:00 07/25/19 19:00 Oxygen Flow Rate (L/min) 6 Oxygen Delivery Method Nasal Cannula Weight: 103.5 kg Body Mass Index (BMI) 31.8 Finger Stick Blood Glucose 317 General: Alert, Oriented x3, Cooperative HEENT: Atraumatic, PERRLA, EOMI, Normocephalic Neck: Supple, No JVD, Negative Carotid Bruits Lungs: Diminished, Rales, Short of Breath, Tachypneic, Using Accessory Muscles Cardiovascular: Normal S1, Normal S2, No murmurs, Tachycardic Abdomen: Bowel Sounds Present, Soft, Non Tender Extremities: No edema, Capillary Refill Less than 3 Seconds Skin: No rashes, No breakdown Musculoskeletal: No Tenderness to Palpation of Joints or Extremities, - - amputated right great toe; healed. Neurological: Cranial nerves II-XII grossly intact Psych/Mental Status: Normal Affect, Appropriate Laboratory Results 07/25/19 17:35: WBC 6.5, RBC 4.49 L, Hgb 13.2, Hct 40.1, MCV 89.3, MCH 29.4, MCHC 32.9, RDW Std Deviation 43.8, RDW Coeff of Ana 13.3, Plt Count 104 L, MPV 9.3, Immature Gran % (Auto) 0.600, Neut % (Auto) 89.2 H, Lymph % (Auto) 6.3 L, [place] % (Auto) 3.7, Eos % (Auto) 0.0, Baso % (Auto) 0.2, Absolute Neuts (auto) 5.8, Absolute Lymphs (auto) 0.41 L, Nucleated RBC % 0, Differential Comment SCANNED 07/25/19 17:35: PT 13.8, INR 1.1, APTT 35.4 07/25/19 17:35: Sodium 133 L, Potassium 3.9, Chloride 100, Carbon Dioxide 24.0, Anion Gap 9, BUN 54 H, Creatinine 1.53 H, Estim Creat Clear Calc 65.62, Est GFR (MDRD) Af Amer 64, Est GFR (MDRD) Non-Af 53 L, BUN/Creatinine Ratio 35.3 H, Glucose 126 H, Calcium 9.2, Total Bilirubin 0.70, AST 70 H, ALT 53, Alkaline Phosphatase 72, Total Protein 8.0, Albumin 3.5, Globulin 4.5 H, Albumin/Globulin Ratio 0.8 L 07/25/19 17:35: Lactic Acid 2.4 H* 07/25/19 17:48: COVID-19 (REJI) Pending Current Medications Sodium Chloride () 1,000 mls @ 150 mls/hr IV .Q6H40M [facility] Last Admin: 07/25/19 17:56 Dose: 150 mls/hr Documented by: Ceftriaxone Sodium 2 gm/ (Sodium Chloride) 50 mls @ 100 mls/hr IV X1 ONE Stop: 07/25/19 19:32 Assessment/Plan All Active Problems (Last Reviewed 07/25/19 @ 23:[address] Talib Trujillo MD) Severe sepsis (Acute) Bilateral pneumonia (Acute) Acute kidney injury (Acute) Suspected COVID-19 virus infection (Acute) Hypoxemia (Acute) The patient is a 43 year old M with a significant history of diabetes mellitus and who lives at [facility] presenting with hemoptysis; shortness of breath; fever and found to have a T-max of 102.5 Fahrenheit; tachycardia; tachypnea; lymphopenia and elevated neutrophils as as well as bilateral pulmonary infiltrates consistent with probable novel coronavirus COVID-19 infection with different diagnoses as severe sepsis. Suspect novel coronavirus COVID-19 infection. Patient required oxygenation with airvo. Admit to intensive care with COVID precaution. COVID 19 test ordered at emergency department; follow. Other supplementary tests of ferritin; triglyceride; and comprehensive respiratory pathogen panel ordered. Welding Machine Operator Electron Beam consult. Severe sepsis secondary to pneumonia Patient with lactic acid of 2.4 Trend lactic acid Procalcitonin is elevated Received ceftriaxone and azithromycin at the emergency department. Continue patient on ceftriaxone and azithromycin. Mucinex ordered. Strep pneumonia antigen and Legionella antigen ordered. Sputum culture ordered. Blood culture was obtained at the emergency department. Follow results. RICH On presentation his creatinine was 1.53. Review of old records shows a c reatinine baseline of around 1. Likely secondary to viral effects versus sepsis. Avoid nephrotoxins. Gentle IV hydration in the setting of probable cavity infection. Trend BMP. Diabetes mellitus with nephropathy Mild hyperglycemia on presentation. Noted proteinuria and glycosuria. Glycosuria probably exacerbated from Jardiance use. De-escalate home basal insulin. Jardiance continued. Accu-Chek QA CHS with correction scale insulin ordered. Elevated d-dimer Patient with hemoptysis. In RICH Discussed with finishing technician. BMP in a.m. Elevated BNP BNP on presentation was 1,792.8 Clinical monitoring. Consider echo if patient is not improving DVT Prophylaxis SCD in setting of hemoptysis Inpatient E&M: 50813 Init Hosp L3
[2019-07-25] MEDS: Azithromycin 250 MG Tablet 500 MG PO (19:32)
[2019-07-25 19:53] LABS: Bacteria 0 SEEN /hpf (None Seen); Mucous, Urine 0 SEEN /hpf (<or=2+); White Blood Cells 0 SEEN /hpf (0-5)
[2019-07-25 19:54] LABS: Color, Urine Yellow (Yellow); Glucose, Dipstick 1000 mg/dl (Normal); Ketone-Dipstick 5 mg/dl (Negative); Leukocyte Esterase-Dipstick Negative /ul (Negative); Nitrite-Dipstick Negative (Negative); Occult Blood-Urine 50 /ul (Negative); Protein-Dipstick 500 mg/dl (Negative); Specific Gravity, Urine 1.025 (1.002-1.030); Urine Bilirubin Dipstick Negative (Negative); Urine Clarity Sl. Cloudy (Clear); Urine Urobilinogen Normal (Normal)
[2019-07-25 20:03] LABS: LDH 547 U/L (87-241)
[2019-07-25 20:07] LABS: Amorphous Sediment 1+ URATE; Fine Granular Cast- Urine 5-10 SEEN /lpf (0-5); Hyaline Cast 5-10 SEEN /lpf (0-5); Red Blood Cells-Urine 5-10 SEEN /hpf (0-5); Squamous Epithelial Cells - UA 0-5 SEEN /hpf (0-5)
[2019-07-25 20:07] LABS: BNP,B-Type NATRIURETIC PEPTIDE 1792.8 pg/mL (0-100)
[2019-07-25] MEDS: 0.9% Normal Saline 1,000 ML 50 ML IV (20:51)
[2019-07-25 20:55] LABS: D-Dimer Quantitative (DVT/PE) 1.14 FEU/ug/m (0.27-0.49)
[2019-07-25 21:27] LABS: Ferritin 521 ng/mL (26-388); Triglycerides 79 mg/dL
[2019-07-25] MEDS: guaiFENesin 1,200 MG Tablet 1200 MG PO (22:00)
[2019-07-25] MEDS: Atorvastatin Calcium 20 MG Tablet PO (22:00)
[2019-07-25 22:05] LABS: Reflex Lactate? Y
[2019-07-25] MEDS: 0.9% Saline Lock 10 ML Syringe IV (22:13)
[2019-07-25 22:25] LABS: Bedside Glucose 102 mg/dL (70-110)
[2019-07-25 22:56] LABS: Lactic Acid 1.6 mmol/L (0.4-1.9)
[2019-07-26] VITALS (55 sets, daily range): BP systolic 43–200; BP diastolic 15–149; PULSE 54–175; RESP 14–40; TEMP 36.6–40.1; O2SAT 53–100
[2019-07-26] MEDS: Ondansetron 4 MG/2 ML Vial IV (01:12)
--- NOTE | 2019-07-26 01:49 | RAD_ITS ---
STUDY: X-RAY CHEST REASON FOR EXAM: Male, 43 years old. Endotracheal tube placement. TECHNIQUE: AP portable chest. 2 images obtained. COMPARISON: July 25, 2019. FINDINGS: Endotracheal tube tip 5.3 cm above the aditya. Nasogastric tube tip below left hemidiaphragm in the proximal gastric body. Perihilar and lower lobe airspace opacities most prominent in the lower lobes and slightly worse since the prior study. No effusions. No pneumothorax. Normal size heart. Normal mediastinum and yudy. Normal visualized pulmonary arteries. Normal visualized aortic arch and descending thoracic aorta. Normal visualized thoracic spine. Normal visualized ribs, clavicles, and shoulders. There is no demonstrated abnormality of the visualized soft tissue structures of the upper abdomen. RAD/Chest 1 View (Portable) IMPRESSION: Bilateral airspace opacities worse in the lower lobes since the prior study. Support tubes are in their expected locations. No pneumothorax. Electronically Signed: Edward Napier MD at 3:05 EDT , Service support ,
--- NOTE | 2019-07-26 01:50 | RAD_ITS ---
STUDY: X-RAY - ABDOMEN/PELVIS REASON FOR EXAM: Male, 43 years old. Orogastric tube placement. TECHNIQUE: AP supine abdomen. COMPARISON: Chest x-ray July 26, 2019. FINDINGS: Enteric tube tip in left abdomen, most likely in the gastric fundus.. There is an unremarkable bowel gas pattern. There is no demonstrated free abdominal air. The visualized liver, spleen and kidneys are grossly normal in size and morphology. Normal soft tissue structures. Normal visualized osseous structures. RAD/Abdomen Single View (Portable) IMPRESSION: Enteric tube tip in the gastric fundus. Electronically Signed: Edward Napier MD at 3:09 EDT , Service support ,
[2019-07-26] MEDS: Etomidate 20 MG/10 ML Vial IV (02:00)
--- NOTE | 2019-07-26 02:00 | NURSING ---
Dr. Weir and anesthesia Dr. Mckeon in to intubate pt. #8 tube, 23@lip, bilat breath sounds.
[2019-07-26] MEDS: Propofol 10MG/Ml 1,000 MG/100 ML Bottle 5.9 MG CONT INF (02:15)
--- NOTE | 2019-07-26 02:29 | PCM.PN.BLA ---
Progress Note Endotracheal Intubation Note Indication: Hypoxia and respiratory distress Performed by: Dr. Talib Trujillo While on 95% airvo patient's oxygen saturation was in lower 80s to higher 70s. Airvo was changed to nonrebreather mask. Endotracheal intubation was discussed with patient. Patient was transferred to a negative airflow room. Due to COVID precautions and the need to spend limited time intubation and for safety of staff, anesthesiologist was consulted. Dr. Graham, anesthesiologist agreed to come over and was present and directed procedure. The patient was placed in supine position. RSI was done using Etomidate 20mg and succinylcholine. A Glidescope was used and inserted into the oropharynx at which time there was a Grade 1 view of the vocal cords. An 8-central african endotracheal tube was inserted and visualized going through the vocal cords. The stylette was removed and cuff was inflated. Breath sounds were heard equally in both lung harp. The endotracheal tube was placed at 23 cm, measured at the lips. Patient's oxygenation gradually increased to high 90s with adjusted peep and FIO2 initially at 100 percent. A STAT chest x-ray was ordered to verify endotracheal tube placement. The patient tolerated the procedure well and there were no immediate complications. Nursing staff also placed an OG tube. A KUB was done to verify placement of OG tube as OG tube was not easily seen on CXR. Await official reading from radiologist. Supervised: By Dr. Graham, anesthesiologist. STROKE Vital Signs/Narrative: Vital Signs Temp Pulse Resp BP BP Pulse Ox 07/26/19 01:00 120 H 28 H 109/89 H 88 07/26/19 00:00 99.8 F H 108 H 23 H 116/70 90 07/25/19 23:46 100 07/25/19 23:00 96 12 115/65 93 07/25/19 22:40 100 19 H 95 07/25/19 22:30 102 H 23 H 117/72 98 Procedures: [id number] Insert Emergency Airway
[2019-07-26] MEDS: fentaNYL drip 100 ML 5 MCG IV ×2 (02:30→11:00)
--- NOTE | 2019-07-26 02:44 | NURSING ---
This RN at bedside. Noticed rhythm on monitor w/ST changes. Pt. not breathing over the vent. Pulse checked, no pulse. Code called. PEA arrest. See Code documentation.
--- NOTE | 2019-07-26 02:58 | EKG12_ITS ---
Test Reason : Blood Pressure : / mmHG Vent. Rate : 172 BPM Atrial Rate : 172 BPM P-R Int : 124 ms QRS Dur : 080 ms QT Int : 250 ms P-R-T Axes : 078 -56 045 degrees QTc Int : 422 ms Sinus tachycardia Left axis deviation Low voltage QRS Inferior infarct , age undetermined Abnormal ECG When compared with ECG of 25-JUL-2019 18:16, MANUAL COMPARISON REQUIRED, DATA IS UNCONFIRMED Confirmed by GUILLERMO MARTINEZ ([id number]), acquisition editor IVIS BAE ([id number]) on 08/03/2019 10:34:34 AM Referred By: TIFFANIE Confirmed By:GUILLERMO MARTINEZ
--- NOTE | 2019-07-26 03:10 | PCM.CODE.B ---
Code Blue Summary code blue: Patient had no pulse but was sinus tach on monitor. ACLS performed with chest compressions and epinephrine. ROSC achieved. Discussed with electrical engineering manager. EKG showed ST and inferior-septal infarct unchanged from presentation. Will start heparin bolus and drip for possible PE. Trend troponin. Anticipate high troponin after chest compression. Increase peep
[2019-07-26] MEDS: 0.9% Saline Lock 10 ML Syringe IV ×3 (03:13→11:01)
--- NOTE | 2019-07-26 03:29 | EKG12_ITS ---
Test Reason : Blood Pressure : / mmHG Vent. Rate : 120 BPM Atrial Rate : 120 BPM P-R Int : 136 ms QRS Dur : 080 ms QT Int : 346 ms P-R-T Axes : 071 -46 084 degrees QTc Int : 489 ms Sinus tachycardia Left axis deviation Low voltage QRS Septal infarct , age undetermined Abnormal ECG Confirmed by FAVIO MOBLEY, KVNG ([id number]), loan expeditor IVIS BAE ([id number] on 07/31/2019 9:47:15 AM Referred By: TIFFANIE Confirmed By:KVNG STAHL MD
[2019-07-26] MEDS: Sodium Bicarbonate 8.4% 50 ML Syringe 50 MEQ IV ×2 (03:40)
--- NOTE | 2019-07-26 03:45 | NURSING ---
This RN and respiratory at bedside. Pt's HR starting to drop. Pulse check and no pulse. PEA arrest. Code blue called, see documentation.
[2019-07-26] MEDS: Heparin Injection (Vial) 5,000 UNIT/ML VIAL 4000 UNIT IV (04:17)
[2019-07-26] MEDS: HEPARIN/D5w 25,000 UNITS 25,000 UNITS/250 ML IV.SOLN. 10 UNITS IV (04:17)
--- NOTE | 2019-07-26 04:23 | CPS ---
Patient already intubated and on vent prior to code. No ambu bag used due to possible covid.
--- NOTE | 2019-07-26 04:27 | NURSING ---
Dr. Weir at bedside inserting central line.
--- NOTE | 2019-07-26 04:48 | NURSING ---
Nursing custodian supervisor Debo called 3 people listed on [facility] record for contacts. No answer by any of the 3 to let them know pt. critical condition.
[2019-07-26 04:56] LABS: Allen Test POS; Blood Gas Specimen Type ART; FI02 100; Mode VC+; O2 Delivery Device Vent; PEEP 20; RR 14; SITE RR; Vt 500
[2019-07-26 04:57] LABS: Time Given 348
[2019-07-26 04:58] LABS: Base Excess -9 mmol/L (-2 to +2); Bicarbonate 16.9 mmol/L (22-26); PO2 58 mmHG (75-100); Total Carbon Dioxide 18 mmol/L; pCO2 31.5 mmHg (35-45); pH 7.34 (7.35-7.45)
[2019-07-26 04:59] LABS: SO2 89 % (95-99)
--- NOTE | 2019-07-26 05:09 | PCM.CODE.B ---
Code Blue Summary Another code blue was called while patient was on Levophed drip at 20mcg/min. ACLS with chest compression was done. Patient received bicarb; and magnesium. Patient achieved ROSC. vasopressin drip was started.
[2019-07-26 05:10] LABS: Anion Gap 17 (5-15); BUN 59 mg/dL (7-18); BUN/Creat Ratio 29.1 RATIO (10-20); Calcium,Total 8.5 mg/dL (8.5-10.1); Chloride 100 mmol/L (98-107); Creatinine, Serum 2.03 mg/dL (0.70-1.30); EST Glomerular Filtration Rate 38 mL/min (>60); Est Glom Filt Rate - Afr Amer 46 mL/min (>60); Estimated Creatinine Clearance 46.44 ml/min; Glucose 184 mg/dL (74-106); Potassium 3.4 mmol/L (3.5-5.1); Sodium Level 136 mmol/L (136-145)
--- NOTE | 2019-07-26 05:13 | PCM.PN.BLA ---
Progress Note Critical Care Note: Intubated and sedated. Heart sounds s1, s2 present, tachycardia Lungs rales Abdomen BS present Ext: No cyanosis Impression: Acute Hypoxemic respiratory failure ARDS covid -19 suspicious On ventilator Placed on levophed and vasopressin Will broaden antibiotics. Discontinue ceftriaxone. Start Vancomycin and Zosyn. Continue azithromycin Critical care time from 2:00 am to 4:00am ( 2hours): This involved direct patient care excluding procedures. It also involved discussing case with aperture mask etcher and nursing staff as well as review of charts STROKE Vital Signs/Narrative: Vital Signs Temp Temp Temp Temp Pulse Pulse Pulse 07/26/19 05:00 102.2 F H 120 H 07/26/19 04:45 102.5 F H 119 H 07/26/19 04:30 102.6 F H 120 H 07/26/19 04:15 103.3 F H 128 H 07/26/19 04:00 103.3 F H 138 H 07/26/19 03:45 103.8 F H 54 L 58 L 07/26/19 03:30 103.9 F H 123 H 07/26/19 03:15 104.1 F H 119 H 07/26/19 03:00 104.0 F H 173 H 07/26/19 02:57 103.9 F H 103.9 F H 103.9 F H 66 175 H 07/26/19 02:45 66 07/26/19 02:25 109 H 07/26/19 02:20 135 H 07/26/19 02:15 117 H 07/26/19 02:10 124 H 07/26/19 02:05 134 H 07/26/19 02:00 66 Pulse Resp Resp Resp Resp BP BP 07/26/19 05:00 21 H 07/26/19 04:45 20 H 07/26/19 04:30 27 H 07/26/19 04:15 18 07/26/19 04:00 16 07/26/19 03:45 40 H 43/31 L 07/26/19 03:30 28 H 72/56 L 07/26/19 03:15 28 H 07/26/19 03:00 26 H 07/26/19 02:57 158 H 31 H 34 H 39 H 70/15 L 07/26/19 02:45 31 H 07/26/19 02:25 29 H 04/23/20 02:20 29 H 07/26/19 02:15 19 H 07/26/19 02:10 25 H 07/26/19 02:05 27 H 07/26/19 02:00 14 BP BP BP Pulse Ox 07/26/19 05:00 114/78 87 07/26/19 04:45 86/61 L 86 07/26/19 04:30 118/75 89 07/26/19 04:15 123/78 H 91 07/26/19 04:00 142/86 H 94 07/26/19 03:45 110/68 73 07/26/19 03:30 72/56 L 80 07/26/19 03:15 71/49 L 76 07/26/19 03:00 135/79 H 82 07/26/19 02:57 163/149 H 200/123 H 07/26/19 02:45 70/15 L 75 07/26/19 02:25 115/100 H 89 07/26/19 02:20 105/77 89 07/26/19 02:15 126/76 H 98 07/26/19 02:10 166/93 H 100 07/26/19 02:05 159/90 H 82 07/26/19 02:00 78/39 L 53 Procedures: [id number] Critial Care Addl 30 Min
--- NOTE | 2019-07-26 05:21 | PCM.PN.BLA ---
Progress Note Attempted placing an IJ and femoral line to left side. In both instances guidewire could not be advanced appropriately. STROKE Vital Signs/Narrative: Vital Signs Temp Temp Temp Temp Pulse Pulse Pulse 07/26/19 05:00 102.2 F H 120 H 07/26/19 04:45 102.5 F H 119 H 07/26/19 04:30 102.6 F H 120 H 07/26/19 04:15 103.3 F H 128 H 07/26/19 04:00 103.3 F H 138 H 07/26/19 03:45 103.8 F H 54 L 58 L 07/26/19 03:30 103.9 F H 123 H 07/26/19 03:15 104.1 F H 119 H 07/26/19 03:00 104.0 F H 173 H 07/26/19 02:57 103.9 F H 103.9 F H 103.9 F H 66 175 H 07/26/19 02:45 66 07/26/19 02:25 109 H 07/26/19 02:20 135 H 07/26/19 02:15 117 H 07/26/19 02:10 124 H 07/26/19 02:05 134 H 07/26/19 02:00 66 Pulse Resp Resp Resp Resp BP BP 07/26/19 05:00 21 H 07/26/19 04:45 20 H 07/26/19 04:30 27 H 07/26/19 04:15 18 07/26/19 04:00 16 07/26/19 03:45 40 H 43/31 L 07/26/19 03:30 28 H 72/56 L 07/26/19 03:15 28 H 07/26/19 03:00 26 H 07/26/19 02:57 158 H 31 H 34 H 39 H 70/15 L 07/26/19 02:45 31 H 07/26/19 02:25 29 H 07/26/19 02:20 29 H 07/26/19 02:15 19 H 07/26/19 02:10 25 H 07/26/19 02:05 27 H 07/26/19 02:00 14 BP BP BP Pulse Ox 07/26/19 05:00 114/78 87 07/26/19 04:45 86/61 L 86 07/26/19 04:30 118/75 89 04/23/20 04:15 123/78 H 91 07/26/19 04:00 142/86 H 94 07/26/19 03:45 110/68 73 07/26/19 03:30 72/56 L 80 07/26/19 03:15 71/49 L 76 07/26/19 03:00 135/79 H 82 07/26/19 02:57 163/149 H 200/123 H 07/26/19 02:45 70/15 L 75 07/26/19 02:25 115/100 H 89 07/26/19 02:20 105/77 89 07/26/19 02:15 126/76 H 98 07/26/19 02:10 166/93 H 100 07/26/19 02:05 159/90 H 82 07/26/19 02:00 78/39 L 53
[2019-07-26 05:26] LABS: International Normalized Ratio 1.4; Prothrombin Time (Protime)PT. 16.3 SECONDS (11.7-14.9)
--- NOTE | 2019-07-26 05:37 | PCM.CON.CC ---
Reason for Consult Date of Consultation: 07/26/19 Reason for Consultation: Acute hypoxemic respiratory failure/septic shock History of Present Illness: The patient is a 43-year-old male, with a history as outlined below, who presented to the emergency department on July 24 from [facility] with shortness of breath and hypoxemia. History pertinent to the patient's hospitalization was obtained primarily via chart review, as the patient is currently intubated and there is no family available at the bedside. Per documentation, the patient was reporting the presence of a nonproductive cough along with subjective fevers. There was also noted by the emergency department provider that the patient had endorsed the presence of hemoptysis. On presentation to the emergency department, the patient was noted to be febrile with a temperature of 101.8 ?F. He was tachycardic and tachypneic as well. The patient was initially placed on nasal cannula supplemental oxygen. Initial laboratory evaluation revealed no evidence of a leukocytosis. There was evidence of thrombocytopenia with a platelet count of 104,000. D-dimer was elevated to 1.14. Chemistry profile was notable for acute kidney injury with a creatinine of 1.53. Lactate was elevated to 2.4. Ferritin and LDH were both elevated. Initial troponin was noted to be 0.298. BNP was elevated to 1792. Plain film chest x-ray revealed diffuse bilateral airspace disease with confluence noted in the right lower lobe. During the patient's emergency department stay, his supplemental oxygen need was escalated to heated high flow supplemental oxygen. He was placed on azithromycin and ceftriaxone. The patient was not intubated in the emergency department. He was subsequently transferred to the medical intensive care unit for further management. Overnight, the patient decompensated from a respiratory perspective. At 0200 hrs., the patient was intubated due to impending respiratory failure. Approximately 45 minutes later, the patient experienced a PEA cardiac arrest, for which ACLS was initiated. Per bedside nursing report, there was approximately 20 minutes of downtime before return of spontaneous circulation. Unfortunately, approximately 1 hour later, the patient once again experienced a PEA cardiac arrest. ACLS was once again initiated with return of spontaneous circulation noted after approximately 10 minutes. Since that time, the patient has required the initiation of vasopressor support with Levophed and vasopressin. Attempts for central venous access overnight were unsuccessful. His antibiotics were broadened this morning to vancomycin and Zosyn. Due to the patient's elevated d-dimer, but in light of his reported hemoptysis, he was placed on a continuous heparin infusion. The patient is not currently on any form of sedation and does appear to have sustained some degree of anoxic brain injury. Central Venous Catheter Indication: Administration of vasoactive agents Consent was obtained from: Procedure was done emergently. A time-out was completed verifying correct patient, procedure, site, positioning, and special equipment if applicable. The patient was placed in a dependent position appropriate for central line placement based on the vein to be cannulated. The patient's left IJ was prepped and draped in a sterile fashion. A triple-lumen catheter was introduced into the left internal jugular vein using the Seldinger technique and under ultrasound guidance. The catheter was threaded smoothly over the guidewire and appropriate blood return was obtained. Each lumen of the catheter was evacuated of air and flushed with sterile saline. The catheter was then sutured in place to the skin and a sterile dressing applied. Chest x-ray to confirm appropriate positioning is pending. ULTRASOUND GUIDANCE STATEMENT (Vascular Access): I performed ultrasound image acquisition and interpretation for needle placement during the procedure. The vessel was identified and found to be free of thrombosis by compression technique. A safe point of entry was marked at the skin in an angle for axis was determined. The needle was guided by obtaining free-flowing fluid and by real-time visualization. Arterial Line Indication: Hemodynamic monitoring Consent was obtained from: Procedure was done emergently. A time-out was completed verifying correct patient, procedure, site, positioning, and special equipment if applicable. The patient's left wrist was prepped and draped in the sterile fashion. An 18-gauge arrow arterial line was introduced into the left radial artery. The catheter was threaded over the guidewire and the needle was removed with the appropriate pulsatile blood return. The catheter was then sutured in place to the skin and a sterile dressing applied. Perfusion to the extremity distal to the point of catheter insertion was checked and found to be adequate. ULTRASOUND GUIDANCE STATEMENT (Vascular Access): I perform ultrasound image acquisition and interpretation for needle placement during this procedure. The vessel was identified and found to be free of thrombosis by compression technique. A safe point of entry was marked at the skin and then angle for access was determined. The needle was guided by obtaining free-flowing fluid and by real-time visualization. UPDATE, 0930: Despite attempts, we have been unable to reach any of the patient's listed next of kin. The patient continues to decompensate clinically with refractory hypoxemia. He is also demonstrating clinical signs of anoxic brain injury. Prognosis is quite poor. Therefore, at approximately 0900, the patient was placed in a prone position. Plan to initiate propofol, fentanyl and cis atracurium. UPDATE, 1000: Received a call from the patient's father, Jeromy. The patient's father was updated on his current clinical status and poor overall prognosis. Goals of care/CODE STATUS was discussed. Following a discussion with the patient's father, he was agreeable to transitioning the patient to DNR CCA. I will update him in 24 hours and if there has not been any significant improvement in the patient's clinical status, he stated that he would then consider transitioning the patient to comfort care measures. Past Medical History Medical History: Medical History (Last Reviewed 07/25/19 @ 23:[address] Talib Trujillo MD) Diabetes type 2, controlled E11.9 Dx : 2001 Last exacerbation : DKA : never Hypoglycemic episode : never ER visit : never Fracture of left great toe S92.402A H/O methicillin resistant Staphylococcus aureus Z86.14 H/O osteomyelitis Z87.39 Mild mental retardation F70 Morbid obesity E66.01 complex necrotic diabetic ulcer abscess R thumb laser eye surgery Allergies liraglutide [From Victoza] Allergy (Severe, Verified 07/25/19 18:00) Vomiting Home Medications: Ambulatory Orders Medication Instructions Recorded Atorvastatin Calcium [Lipitor] 20 mg PO QHS 10/14/17 Ondansetron [Zofran Odt] 4 mg PO Q8H PRN PRN #10 tab 10/14/17 Acetaminophen [Pain Relief] 650 mg PO Q4H PRN PRN 07/25/19 Colesevelam Hydrochloride [Welchol] 625 mg PO BID 07/25/19 Empagliflozin [Jardiance] 10 mg PO DAILY 07/25/19 Furosemide [Lasix] 20 mg PO DAILY 07/25/19 Guaifenesin [Robitussin] 10 ml PO Q4H PRN PRN 07/25/19 Insulin Glargine,Hum.rec.anlog 50 unit SQ DAILY 07/25/19 [Lantus] Loperamide [Imodium] 2 mg PO TID PRN PRN 07/25/19 Omeprazole 40 mg PO BID 07/25/19 Surgical History: Surgical History (Last Reviewed 07/25/19 @ 23:[address] Talib Trujillo MD) History of incision and drainage Z98.890 Hx of cholecystectomy Z90.49 S/P excisional debridement Z98.890 Surgical History: - - unknown as patient is a poor historian. Smoking Status: Never smoker - *Family History Maternal Family History: Family History (Last Reviewed 07/25/19 @ 23:[address] Talib Trujillo MD) Mother Diabetes Father Diabetes History Items: No pertinent history, - - patient is a poor historian. Review of Systems Unable to obtain accurate/complete ROS d/t: Due to current intubation and mechanical ventilation status Objective: The patient's most recent lab work, culture data and imaging studies have all been personally reviewed. Strep and urine Legionella antigens were negative. Respiratory viral panel was negative. Sputum, blood and urine cultures are pending. - Physical Exam Vitals/I&O's: Vital Signs Temp Pulse Resp BP Pulse Ox 102.2 F H 120 H 21 H 114/78 87 07/26/19 05:00 07/26/19 05:00 07/26/19 05:00 07/26/19 05:00 07/26/19 05:00 Oxygen Flow Rate (L/min) 6 Oxygen Delivery Method Mechanical Ventilator Weight: 217 lb 2.485 oz Body Mass Index (BMI) 32.1 Finger Stick Blood Glucose 317 Intake and Output for Last 24 Hours 07/24/19 07/25/19 07/26/19 23:59 23:59 23:59 Intake Total 881.67 / 881.67 8.43 / 8.43 Output Total 0 / 0 Balance 881.67 / 881.67 8.43 / 8.43 General: - - Intubated and mechanically ventilated. Currently overbreathing set rate on ventilator. HEENT: Atraumatic, Normocephalic Oral: No Gingival or Mucosal Lesions/ Ulcerations, - - Endotracheal and OG tubes in place Neck: Supple, No Nodes, Trachea Midline, - - Left IJ triple-lumen catheter in place Lungs: Diminished, Rales, Rhonchi, Tachypneic Cardiovascular: Normal S1, Normal S2, Tachycardic Abdomen: Bowel Sounds Present, Soft, Distended, Obese Extremities: No clubbing, No cyanosis, No edema Skin: No breakdown Musculoskeletal: No Muscle Wasting Lymphatic: No Cervical, Supraclavicular, or Inguinal Adenopathy Neurological: - - Patient is camatose but overbreathing set rate on vent. Patient has been intermittently posturing. Labs (Last 48 Hours) 07/25/19 07/25/19 07/25/19 17:30 17:30 17:35 WBC 6.5 RBC 4.49 L Hgb 13.2 Hct 40.1 MCV 89.3 MCH 29.4 MCHC 32.9 RDW Std Deviation 43.8 RDW Coeff of Ana 13.3 Plt Count 104 L MPV 9.3 Immature Gran % (Auto) 0.600 Neut % (Auto) 89.2 H Lymph % (Auto) 6.3 L [place] % (Auto) 3.7 Eos % (Auto) 0.0 Baso % (Auto) 0.2 Absolute Neuts (auto) 5.8 Absolute Lymphs (auto) 0.41 L Nucleated RBC % 0 Differential Comment SCANNED PT INR APTT D-Dimer Quant (PE/DVT) Specimen Type ART Sample Site R RADIAL pH Pending 7.46 H Bicarbonate Actual Pending 21.3 L POC Total CO2 Pending 22 Base Excess Pending -3 L O2 Saturation Pending 97 O2 % 75 ABG pCO2 Pending 30.3 L ABG pO2 Pending 82 Mook Test NA Respiration Rate O2 Delivery Device Nasal Can Liter Flow 30.0 Vent Mode Tidal Volume POC PEEP Blood Gas Notified Whom ED Blood Gas Notified Time 2049 Sodium Potassium Chloride Carbon Dioxide Anion Gap BUN Creatinine Estim Creat Clear Calc Est GFR (MDRD) Af Amer Est GFR (MDRD) Non-Af BUN/Creatinine Ratio Glucose Lactic Acid Calcium Ferritin Total Bilirubin AST ALT Alkaline Phosphatase Lactate Dehydrogenase Total Creatine Kinase Troponin I B-Natriuretic Peptide Total Protein Albumin Globulin Albumin/Globulin Ratio Triglycerides Procalcitonin Urine Color Urine Clarity Urine pH Ur Specific [place] Urine Protein Urine Glucose (UA) Urine Ketones Urine Occult Blood Urine Nitrite Urine Bilirubin Urine Urobilinogen Ur Leukocyte Esterase Urine RBC Urine WBC Ur Squamous Epith Cells Amorphous Sediment Urine Bacteria Hyaline Casts Fine Granular Casts Urine Mucus COVID-19 (REJI) POC Glucose 04/22/20 04/22/20 04/22/20 17:35 17:35 17:35 WBC RBC Hgb Hct MCV MCH MCHC RDW Std Deviation RDW Coeff of Ana Plt Count MPV Immature Gran % (Auto) Neut % (Auto) Lymph % (Auto) [place] % (Auto) Eos % (Auto) Baso % (Auto) Absolute Neuts (auto) Absolute Lymphs (auto) Nucleated RBC % Differential Comment PT 13.8 INR 1.1 APTT 35.4 D-Dimer Quant (PE/DVT) Specimen Type Sample Site pH Bicarbonate Actual POC Total CO2 Base Excess O2 Saturation O2 % ABG pCO2 ABG pO2 Mook Test Respiration Rate O2 Delivery Device Liter Flow Vent Mode Tidal Volume POC PEEP Blood Gas Notified Whom Blood Gas Notified Time Sodium 133 L Potassium 3.9 Chloride 100 Carbon Dioxide 24.0 Anion Gap 9 BUN 54 H Creatinine 1.53 H Estim Creat Clear Calc 65.62 Est GFR (MDRD) Af Amer 64 Est GFR (MDRD) Non-Af 53 L BUN/Creatinine Ratio 35.3 H Glucose 126 H Lactic Acid 2.4 H* Calcium 9.2 Ferritin Total Bilirubin 0.70 AST 70 H ALT 53 Alkaline Phosphatase 72 Lactate Dehydrogenase Total Creatine Kinase Troponin I B-Natriuretic Peptide Total Protein 8.0 Albumin 3.5 Globulin 4.5 H Albumin/Globulin Ratio 0.8 L Triglycerides Procalcitonin Urine Color Urine Clarity Urine pH Ur Specific [place] Urine Protein Urine Glucose (UA) Urine Ketones Urine Occult Blood Urine Nitrite Urine Bilirubin Urine Urobilinogen Ur Leukocyte Esterase Urine RBC Urine WBC Ur Squamous Epith Cells Amorphous Sediment Urine Bacteria Hyaline Casts Fine Granular Casts Urine Mucus COVID-19 (REJI) POC Glucose 07/25/19 07/25/19 07/25/19 17:35 17:35 17:35 WBC RBC Hgb Hct MCV MCH MCHC RDW Std Deviation RDW Coeff of Ana Plt Count MPV Immature Gran % (Auto) Neut % (Auto) Lymph % (Auto) [place] % (Auto) Eos % (Auto) Baso % (Auto) Absolute Neuts (auto) Absolute Lymphs (auto) Nucleated RBC % Differential Comment PT INR APTT D-Dimer Quant (PE/DVT) 1.14 H* Specimen Type Sample Site pH Bicarbonate Actual POC Total CO2 Base Excess O2 Saturation O2 % ABG pCO2 ABG pO2 Mook Test Respiration Rate O2 Delivery Device Liter Flow Vent Mode Tidal Volume POC PEEP Blood Gas Notified Whom Blood Gas Notified Time Sodium Potassium Chloride Carbon Dioxide Anion Gap BUN Creatinine Estim Creat Clear Calc Est GFR (MDRD) Af Amer Est GFR (MDRD) Non-Af BUN/Creatinine Ratio Glucose Lactic Acid Calcium Ferritin Total Bilirubin AST ALT Alkaline Phosphatase Lactate Dehydrogenase Total Creatine Kinase Troponin I B-Natriuretic Peptide 1792.8 H Total Protein Albumin Globulin Albumin/Globulin Ratio Triglycerides Procalcitonin 1.20 H Urine Color Urine Clarity Urine pH Ur Specific [place] Urine Protein Urine Glucose (UA) Urine Ketones Urine Occult Blood Urine Nitrite Urine Bilirubin Urine Urobilinogen Ur Leukocyte Esterase Urine RBC Urine WBC Ur Squamous Epith Cells Amorphous Sediment Urine Bacteria Hyaline Casts Fine Granular Casts Urine Mucus COVID-19 (REJI) POC Glucose 07/25/19 07/25/19 07/25/19 17:35 17:35 17:38 WBC RBC Hgb Hct MCV MCH MCHC RDW Std Deviation RDW Coeff of Ana Plt Count MPV Immature Gran % (Auto) Neut % (Auto) Lymph % (Auto) [place] % (Auto) Eos % (Auto) Baso % (Auto) Absolute Neuts (auto) Absolute Lymphs (auto) Nucleated RBC % Differential Comment PT INR APTT D-Dimer Quant (PE/DVT) Specimen Type Sample Site pH Bicarbonate Actual POC Total CO2 Base Excess O2 Saturation O2 % ABG pCO2 ABG pO2 Mook Test Respiration Rate O2 Delivery Device Liter Flow Vent Mode Tidal Volume POC PEEP Blood Gas Notified Whom Blood Gas Notified Time Sodium Potassium Chloride Carbon Dioxide Anion Gap BUN Creatinine Estim Creat Clear Calc Est GFR (MDRD) Af Amer Est GFR (MDRD) Non-Af BUN/Creatinine Ratio Glucose Lactic Acid Calcium Ferritin 521 H Total Bilirubin AST ALT Alkaline Phosphatase Lactate Dehydrogenase 547 H Total Creatine Kinase Troponin I B-Natriuretic Peptide Total Protein Albumin Globulin Albumin/Globulin Ratio Triglycerides 79 Procalcitonin Urine Color Yellow Urine Clarity Sl. Cloudy Urine pH 5.0 Ur Specific [place] 1.025 Urine Protein 500 H Urine Glucose (UA) 1000 H Urine Ketones 5 H Urine Occult Blood 50 H Urine Nitrite Negative Urine Bilirubin Negative Urine Urobilinogen Normal Ur Leukocyte Esterase Negative Urine RBC 5-10 SEEN Urine WBC 0 SEEN Ur Squamous Epith Cells 0-5 SEEN Amorphous Sediment 1+ URATE Urine Bacteria 0 SEEN Hyaline Casts 5-10 SEEN Fine Granular Casts 5-10 SEEN Urine Mucus 0 SEEN COVID-19 (REJI) POC Glucose 07/25/19 07/25/19 07/25/19 17:48 22:10 22:15 WBC RBC Hgb Hct MCV MCH MCHC RDW Std Deviation RDW Coeff of Ana Plt Count MPV Immature Gran % (Auto) Neut % (Auto) Lymph % (Auto) [place] % (Auto) Eos % (Auto) Baso % (Auto) Absolute Neuts (auto) Absolute Lymphs (auto) Nucleated RBC % Differential Comment PT INR APTT D-Dimer Quant (PE/DVT) Specimen Type Sample Site pH Bicarbonate Actual POC Total CO2 Base Excess O2 Saturation O2 % ABG pCO2 ABG pO2 Mook Test Respiration Rate O2 Delivery Device Liter Flow Vent Mode Tidal Volume POC PEEP Blood Gas Notified Whom Blood Gas Notified Time Sodium Potassium Chloride Carbon Dioxide Anion Gap BUN Creatinine Estim Creat Clear Calc Est GFR (MDRD) Af Amer Est GFR (MDRD) Non-Af BUN/Creatinine Ratio Glucose Lactic Acid 1.6 Calcium Ferritin Total Bilirubin AST ALT Alkaline Phosphatase Lactate Dehydrogenase Total Creatine Kinase Troponin I B-Natriuretic Peptide Total Protein Albumin Globulin Albumin/Globulin Ratio Triglycerides Procalcitonin Urine Color Urine Clarity Urine pH Ur Specific [place] Urine Protein Urine Glucose (UA) Urine Ketones Urine Occult Blood Urine Nitrite Urine Bilirubin Urine Urobilinogen Ur Leukocyte Esterase Urine RBC Urine WBC Ur Squamous Epith Cells Amorphous Sediment Urine Bacteria Hyaline Casts Fine Granular Casts Urine Mucus COVID-19 (REJI) Pending POC Glucose 102 07/26/19 07/26/19 07/26/19 03:05 03:40 04:15 WBC Pending RBC Pending Hgb Pending Hct Pending MCV Pending MCH Pending MCHC Pending RDW Std Deviation Pending RDW Coeff of Ana Pending Plt Count Pending MPV Immature Gran % (Auto) Neut % (Auto) Pending Lymph % (Auto) [place] % (Auto) Eos % (Auto) Baso % (Auto) Absolute Neuts (auto) Pending Absolute Lymphs (auto) Nucleated RBC % Differential Comment PT INR APTT D-Dimer Quant (PE/DVT) Specimen Type ART Sample Site RR pH 7.34 L Bicarbonate Actual 16.9 L POC Total CO2 18 Base Excess -9 L O2 Saturation 89 L O2 % 100 ABG pCO2 31.5 L ABG pO2 58 L Mook Test POS Respiration Rate 14 O2 Delivery Device Vent Liter Flow Vent Mode VC+ Tidal Volume 500 POC PEEP 20 Blood Gas Notified Whom [facility] Blood Gas Notified Time 348 Sodium Potassium Chloride Carbon Dioxide Anion Gap BUN Creatinine Estim Creat Clear Calc Est GFR (MDRD) Af Amer Est GFR (MDRD) Non-Af BUN/Creatinine Ratio Glucose Lactic Acid Calcium Ferritin Total Bilirubin AST ALT Alkaline Phosphatase Lactate Dehydrogenase Total Creatine Kinase Troponin I 0.298 H B-Natriuretic Peptide Total Protein Albumin Globulin Albumin/Globulin Ratio Triglycerides Procalcitonin Urine Color Urine Clarity Urine pH Ur Specific [place] Urine Protein Urine Glucose (UA) Urine Ketones Urine Occult Blood Urine Nitrite Urine Bilirubin Urine Urobilinogen Ur Leukocyte Esterase Urine RBC Urine WBC Ur Squamous Epith Cells Amorphous Sediment Urine Bacteria Hyaline Casts Fine Granular Casts Urine Mucus COVID-19 (REJI) POC Glucose 07/26/19 07/26/19 07/26/19 04:15 04:15 04:15 WBC RBC Hgb Hct MCV MCH MCHC RDW Std Deviation RDW Coeff of Ana Plt Count MPV Immature Gran % (Auto) Neut % (Auto) Lymph % (Auto) [place] % (Auto) Eos % (Auto) Baso % (Auto) Absolute Neuts (auto) Absolute Lymphs (auto) Nucleated RBC % Differential Comment PT INR APTT D-Dimer Quant (PE/DVT) Specimen Type Sample Site pH Bicarbonate Actual POC Total CO2 Base Excess O2 Saturation O2 % ABG pCO2 ABG pO2 Mook Test Respiration Rate O2 Delivery Device Liter Flow Vent Mode Tidal Volume POC PEEP Blood Gas Notified Whom Blood Gas Notified Time Sodium 136 Potassium 3.4 L Chloride 100 Carbon Dioxide 19.0 L Anion Gap 17 H BUN 59 H Creatinine 2.03 H Estim Creat Clear Calc 46.44 Est GFR (MDRD) Af Amer 46 L Est GFR (MDRD) Non-Af 38 L BUN/Creatinine Ratio 29.1 H Glucose 184 H Lactic Acid Calcium 8.5 Ferritin Total Bilirubin AST ALT Alkaline Phosphatase Lactate Dehydrogenase Total Creatine Kinase Pending Troponin I Pending B-Natriuretic Peptide Total Protein Albumin Globulin Albumin/Globulin Ratio Triglycerides Pending Procalcitonin Urine Color Urine Clarity Urine pH Ur Specific [place] Urine Protein Urine Glucose (UA) Urine Ketones Urine Occult Blood Urine Nitrite Urine Bilirubin Urine Urobilinogen Ur Leukocyte Esterase Urine RBC Urine WBC Ur Squamous Epith Cells Amorphous Sediment Urine Bacteria Hyaline Casts Fine Granular Casts Urine Mucus COVID-19 (REJI) POC Glucose 07/26/19 04:15 WBC RBC Hgb Hct MCV MCH MCHC RDW Std Deviation RDW Coeff of Ana Plt Count MPV Immature Gran % (Auto) Neut % (Auto) Lymph % (Auto) [place] % (Auto) Eos % (Auto) Baso % (Auto) Absolute Neuts (auto) Absolute Lymphs (auto) Nucleated RBC % Differential Comment PT 16.3 H INR 1.4 APTT 40.0 H D-Dimer Quant (PE/DVT) Specimen Type Sample Site pH Bicarbonate Actual POC Total CO2 Base Excess O2 Saturation O2 % ABG pCO2 ABG pO2 Mook Test Respiration Rate O2 Delivery Device Liter Flow Vent Mode Tidal Volume POC PEEP Blood Gas Notified Whom Blood Gas Notified Time Sodium Potassium Chloride Carbon Dioxide Anion Gap BUN Creatinine Estim Creat Clear Calc Est GFR (MDRD) Af Amer Est GFR (MDRD) Non-Af BUN/Creatinine Ratio Glucose Lactic Acid Calcium Ferritin Total Bilirubin AST ALT Alkaline Phosphatase Lactate Dehydrogenase Total Creatine Kinase Troponin I B-Natriuretic Peptide Total Protein Albumin Globulin Albumin/Globulin Ratio Triglycerides Procalcitonin Urine Color Urine Clarity Urine pH Ur Specific [place] Urine Protein Urine Glucose (UA) Urine Ketones Urine Occult Blood Urine Nitrite Urine Bilirubin Urine Urobilinogen Ur Leukocyte Esterase Urine RBC Urine WBC Ur Squamous Epith Cells Amorphous Sediment Urine Bacteria Hyaline Casts Fine Granular Casts Urine Mucus COVID-19 (REJI) POC Glucose Microbiology 07/25/19 19:40 Urine, Clean Catch Streptococcus pneumoniae Antigen (M - Final 07/25/19 19:40 Urine, Clean Catch Legionella Antigen - Final Clinical Impression(s) from Imaging Studies Chest X-Ray 07/25/19 18:27 IMPRESSION: Widespread bilateral patchy pulmonary infiltrates, most pronounced in the right lung base. Findings are nonspecific and could represent pulmonary edema or multifocal pneumonia. Electronically Signed: Bright Harrison MD at 19:05 EDT , Service support , Chest X-Ray 07/26/19 01:49 IMPRESSION: Bilateral airspace opacities worse in the lower lobes since the prior study. Support tubes are in their expected locations. No pneumothorax. Electronically Signed: Edward Napier MD at 3:05 EDT , Service support , ADDENDUM: 07/26/19 0319 KUB X-Ray 07/26/19 01:50 IMPRESSION: Enteric tube tip in the gastric fundus. Electronically Signed: Edward Napier MD at 3:09 EDT , Service support , Current Medications Acetaminophen (Tylenol) 650 mg PO Q6H PRN PRN PRN Reason: Pain Score 1-10/Temp > 100.7 F Atorvastatin Calcium (Lipitor) 20 mg PO QHS [facility] Last Admin: 07/25/19 22:00 Dose: 20 mg Documented by: Colesevelam HCl (Welchol) 625 mg PO BID [facility] Last Admin: 07/25/19 21:35 Dose: Not Given Documented by: Dextrose (D50w Syringe) 0 gm IV X1 PRN; Protocol PRN Reason: Hypoglycemia Empagliflozin (Jardiance) 10 mg PO DAILY [facility] Glucagon () 1 mg IM .X1 PRN PRN Reason: Hypoglycemia Guaifenesin (Mucinex) 1,200 mg PO BID [facility] Last Admin: 07/25/19 22:00 Dose: 1,200 mg Documented by: Heparin Sodium (Porcine) (Heparin Na) 0 unit IV UD PRN; Protocol Sodium Chloride () 1,000 mls @ 50 mls/hr IV .Q20H [facility] Last Infusion: 07/25/19 23:47 Dose: 50 mls/hr Documented by: Azithromycin 500 mg/ Dextrose 255 mls @ 250 mls/hr IV Q24 GEENA Sodium Chloride () 250 mls @ 15 mls/hr IV .[id number] PRN PRN Reason: Saline Flush Sodium Chloride () 250 mls @ 15 mls/hr IV .[id number] PRN PRN Reason: Additional IVPB Infusion Heparin Sodium/Dextrose () 25,000 units in 250 mls @ 10 mls/hr IV .Q25H [facility]; Protocol Last Admin: 07/26/19 04:17 Dose: 1,000 units/hr, 10 mls/hr Documented by: Norepinephrine Bitartrate 8 mg (/ Sodium Chloride) 250 mls @ 9.375 mls/hr CONT INF .[id number] [facility]; Protocol Last Admin: 07/26/19 03:30 Dose: 5 mcg/min, 9.4 mls/hr Documented by: Fentanyl () 100 mls @ 2.5 mls/hr IV UD [facility]; Protocol Last Titration: 07/26/19 03:30 Dose: 0 mcg/hr, 0 mls/hr Documented by: Vasopressin 20 units/ Sodium (Chloride) 25 mls @ 3 mls/hr IV .Q8H20M [facility] Last Admin: 07/26/19 04:09 Dose: 0.04 units/min, 3 mls/hr Documented by: Propofol (Diprivan) 1,000 mg in 100 mls @ 5.91 mls/hr CONT INF .Q12H [facility]; Protocol Last Titration: 07/26/19 04:30 Dose: 0 mcg/kg/min, 0 mls/hr Documented by: Piperacillin Sod/Tazobactam (Sod 3.375 gm/ Sodium Chloride) 50 mls @ 12.5 mls/hr IV Q8 [facility] Last Admin: 07/26/19 05:31 Dose: 12.5 mls/hr Documented by: Vancomycin HCl 1,500 mg/ (Sodium Chloride) 530 mls @ 250 mls/hr IV X1 ONE Stop: 07/26/19 07:01 Last Admin: 07/26/19 05:30 Dose: 250 mls/hr Documented by: Vancomycin IV Pharmacy to Dose (1 ea/ Sodium Chloride) 500 mls @ 250 mls/hr IV X1 PRN; Protocol PRN Reason: Rx to Dose Insulin Glargine (Lantus (Bkc)) 35 units SC DAILY [facility] Insulin Human Lispro (Humalog Kwikpen (Bkc)) 0 unit SC ACHS [facility]; Protocol Last Admin: 07/25/19 22:11 Dose: Not Given Documented by: Loperamide HCl (Imodium) 2 mg PO TID PRN PRN PRN Reason: Diarrhea Melatonin (Melatonin) 3 mg PO QHS PRN PRN PRN Reason: INSOMNIA Nutritional Formula (Lactose Free) (Glucerna Shake) 120 ml PO TIDCM [facility] Ondansetron HCl (Zofran) 4 mg IV Q8H PRN PRN PRN Reason: NAUSEA/VOMITING Last Admin: 07/26/19 01:12 Dose: 4 mg Documented by: Pantoprazole Sodium (Protonix) 40 mg PO BID [facility] Last Admin: 07/25/19 21:35 Dose: Not Given Documented by: Sodium Chloride () 10 - 40 ml IV UD PRN PRN Reason: SALINE FLUSH Last Admin: 07/26/19 03:14 Dose: 40 ml Documented by: Assessment/Plan RECOMMENDATIONS: 1. Employ lung protective ventilatory strategy. Transition from VC+ to conventional assist control with low tidal volume. 2. Wean FiO2 and PEEP to maintain oxygen saturations at or above 90%. 3. Consider early paralysis and/or prone positioning. 4. Continue vasopressor support. Wean to maintain a mean arterial pressure at or above 65 mmHg. 5. Start IV hydrocortisone 50 mg every 6 hours. 6. Continue heparin infusion. 7. CODE STATUS discussion with family. IMPRESSIONS: 1. Acute hypoxemic respiratory failure 2/2 ARDS due to healthcare associated pneumonia versus COVID-19 infection The patient presented to the hospital with shortness of breath and radiographic evidence of bilateral airspace disease. The patient decompensated from a respiratory perspective shortly after his admission to the intensive care unit. He did require emergent intubation. The patient now has refractory hypoxemia. Therefore, in addition to broad-spectrum antimicrobials, will employ a lung protective ventilator strategy. Early paralytics and prone positioning will be employed. Over concerns for viral mediated thrombolic phenomenon, the patient was also started on a heparin drip, which will be continued. Plan to wean FiO2 and PEEP as tolerated. 2. Septic shock due to underlying pulmonary infectious etiology Continue current supportive measures as noted above. Wean vasopressor support to maintain a mean arterial pressure at or above 65 mmHg. Employ conservative fluid management strategy. Start stress dose steroids 50 mg every 6 hours. Continue broad-spectrum antimicrobials. COVID testing is currently pending. 3. Encephalopathy with concern for anoxic etiology The patient did experience PEA cardiac arrest x2, with concerns for the interval development of anoxic brain injury. The patient is currently comatose and nonresponsive. We will plan to continue current supportive measures for the next 24 to 48 hours. 4. Acute kidney injury, likely secondary to ischemic ATN in the setting of septic shock Continue current supportive measures with vasopressors in an attempt to maintain hemodynamic stability. Continue to monitor urine output. There is no current indication for renal replacement therapy at this time. 5. Status post PEA cardiac arrest/non-ST segment elevation VT The patient will be continued on a heparin infusion. However, at this time, there is no additional work-up that would be undertaken by cardiology. The patient's troponin elevation is likely secondary to demand ischemia in the setting of #1 and 2. 6. CODE STATUS I did speak with the patient's father, Jeromy, who wished for the patient to be transition to DNR CCA following my discussion regarding his clinical status. The patient's father would like to wait to see how the patient responds to therapy over the next 24 hours. If there is no significant improvement, he would then consider palliative withdrawal of life support. TIME: 120 minutes of critical care time, inclusive of procedures, was spent addressing the patient's acute hypoxemic respiratory failure, ARDS, possible healthcare associated pneumonia versus COVID infection, septic shock, encephalopathy with concern for anoxic brain injury, acute kidney injury, non-ST segment elevation VT, review of all data and collaboration with the care team. ([id number], [id number]) CPT Charges: 10843, 57718, 24266 Procedures: 57112 Critial Care Addl 30 Min 9xxxx: 21034 Critical care first hour Multi Select Codes - Hospitalists' Procedures Procedures: 82509 Critial Care Addl 30 Min
[2019-07-26 05:41] LABS: Absolute Lymphocyte Count 1.41 X10^3/uL (0.83-4.51); Absolute Neutrophil Count 11.4 X10^3/uL (2.0-7.7); Basophil# 0.01 X10^3/uL; Basophil% 0.1 % (0-1); Eosinophil# 0.01 X10^3/uL; Eosinophils% 0.1 % (0-5); Hematocrit 41.1 % (40-54); Hemoglobin 12.9 g/dL (13.0-16.5); Lymphocyte # 1.41 X10^3/ul (4.0); Lymphocyte % 10.7 % (19-41); Mean Corp Hgb Conc 31.4 g/dL (32-36); Mean Corpuscular Hgb 29.5 pg (27.0-32.0); Mean Corpuscular Volume 94.1 fL (80-94); Mean Platelet Vol. 10.2 fl (6.2-12.0); Monocyte# 0.19 X10^3/uL; Monocyte% 1.4 % (0-10); NRBC Flagged by Analyzer 0 % (0-5); Neutrophil # 11.36 X10^3/uL (2.7-7.7); Neutrophil % 85.8 % (47-70); POSITIVE MORPHOLOGY YES; Platelet Count 101 K/mm3 (150-450); RBC Distribution Width CV 13.5 % (11.6-14.6); RBC Distribution Width SD 46.5 fl (35.1-43.9); Red Blood Count 4.37 M/mm3 (4.6-6.2); White Blood Count 13.2 K/mm3 (4.4-11.0)
[2019-07-26 05:43] LABS: Differential Indicated SCAN CRITERIA MET
--- NOTE | 2019-07-26 05:56 | PCM.RX.CS ---
Consult Pharmacy has been consulted to manage selected antiobiotic: Vancomycin Type of Consult: New start Suspected Infection: Pneumonia Labs: Sodium 136 mmol/L (136-145) 07/26/19 04:15 Potassium 3.4 mmol/L (3.5-5.1) L 07/26/19 04:15 Chloride 100 mmol/L (98-107) 07/26/19 04:15 Carbon Dioxide 19.0 mmol/L (21.0-32.0) L 07/26/19 04:15 Anion Gap 17 (5-15) H 07/26/19 04:15 BUN 59 mg/dL (7-18) H 07/26/19 04:15 Creatinine 2.03 mg/dL (0.70-1.30) H 07/26/19 04:15 Est GFR (MDRD) Af Amer 46 mL/min (>60) L 07/26/19 04:15 Est GFR (MDRD) Non-Af 38 mL/min (>60) L 07/26/19 04:15 BUN/Creatinine Ratio 29.1 RATIO (10-20) H 07/26/19 04:15 Glucose 184 mg/dL (74-106) H 07/26/19 04:15 Microbiology: Microbiology 07/25/19 19:40 Urine, Clean Catch Streptococcus pneumoniae Antigen (M - Final 07/25/19 19:40 Urine, Clean Catch Legionella Antigen - Final Weight used for dosin.5 kg Estimated Creatinine Clearance: 80.81 Goal Trough: 15-20 mcg/mL Pharmacy Plan for Drug Dosing: Pharmacy Service will continue to monitor and adjust dosing as required. Medications Vancomycin HCl 1,500 mg/ (Sodium Chloride) 530 mls @ 250 mls/hr IV X1 ONE Stop: 07/26/19 07:01 Last Admin: 07/26/19 05:30 Dose: 250 mls/hr Documented by: Vancomycin HCl 1,750 mg/ (Sodium Chloride) 535 mls @ 250 mls/hr IV Q12H [facility] Follow-Up Labs: Trough Vancomycin Labs to be done on [date and time ordered]: 07/26 @ 1630
--- NOTE | 2019-07-26 06:30 | RAD_ITS ---
STUDY: X-RAY CHEST REASON FOR EXAM: Male, 43 years old. LINE PLACEMENT - central and arterial TECHNIQUE: Single AP portable view of the chest. COMPARISON: Comparison is made with prior examination done earlier in the day. FINDINGS: An endotracheal tube is seen. The tip is at 5.9 cm proximal to the aditya. An orogastric tube is seen with tip below the left hemidiaphragm. A left-sided intrajugular venous catheter has been placed with the tip in the midportion of the superior vena cava. Persistent bilateral patchy infiltrates worse on the right side. There has been improvement as compared to prior study. There is no demonstrated pleural abnormality. Normal size heart. Normal mediastinum and yudy. Normal visualized pulmonary arteries. Normal visualized aortic arch and descending thoracic aorta. Normal visualized thoracic spine. Normal visualized ribs, clavicles, and shoulders. There is no demonstrated abnormality of the visualized soft tissue structures of the upper abdomen. RAD/CXR for Line Placement IMPRESSION: Persistent bilateral patchy infiltrates although there has been improvement as compared to prior examination. All the support tubes are in good position. Electronically Signed: Rolf Man, at 8:48 EDT , Service support ,
[2019-07-26 06:50] LABS: Platelet Estimate SLT DEC (ADEQ)
[2019-07-26] MEDS: Insulin Lispro 100 UNIT/ML INSULN.PEN SC ×2 (06:51→12:58)
[2019-07-26 07:41] LABS: Bedside Glucose 191 mg/dL (70-110)
[2019-07-26 08:10] LABS: Base Excess -7 mmol/L (-2 to +2); Bicarbonate 18.6 mmol/L (22-26); PO2 60 mmHG (75-100); SO2 89 % (95-99); Total Carbon Dioxide 20 mmol/L; pCO2 35.5 mmHg (35-45); pH 7.33 (7.35-7.45)
[2019-07-26 08:19] LABS: Blood Gas Specimen Type ALINE; FI02 100; Mode A-C; O2 Delivery Device Vent; PEEP 18; RR 14; SITE L RADIAL; Time Given 731; Vt 450
[2019-07-26 08:24] LABS: CPK Total, Creatine Kinase 642 U/L (39-308)
--- NOTE | 2019-07-26 08:27 | NURSING ---
Unable to complete CAM d/t RASS -4/-5
[2019-07-26 08:53] LABS: Triglycerides 66 mg/dL
--- NOTE | 2019-07-26 09:03 | CASEMGMT ---
Social Work Dr. Henson stating that pt is in critical condition and nursing staff has been unable to contact any next of kin. Phone call to [facility] and spoke with pt nurse and SW was in the background. This SW inquired about HCPOA and [facility] staff states pt does not have a HCPOA. All communication from [facility] is through [facility] assistant case manager Brittany Jhaarland and they only have her office phone number. Margaux [facility] Retail Merchandising Manager states that they have no additional information for any family and that Velia is only person who has visited pt while at [facility]. Phone call to Brittany Zaragoza's, SIDNEY CM work phone and VM left. Email also sent requesting return call JOSE. Phone call to [facility] emergency number and spoke with Brooke. Brooke provided Brittany's personal cell. Cell phone called x2 with no answer and VM left. Second call to Brooke and informed of this and Brooke will ask Brittany to call SW. Return call from Brittany. Pt has no HCPOA and Brittany is contact but not medical decision maker. Brittany stating pt has no and no children but there is a father and mother in law and Brittany does not have phone number. [facility] demographic sheet lists pt father Jeromy Loyola and a significant other Hamida Juan, both numbers are non working numbers. [facility] demographic sheet lists Velia, Shadi Parrish and Bharti Monroy. Phone call to Bharti Monroy and got VM and she works for [employer]. Phone call to Shadi Parrish and able to speak to him. Shadi is the pt advocate at [facility]. Shadi does know pt and pt father who obtains his housing through [employer]. Shadi was able to provide a phone number for pt father. SW called this number and it is not working. Return call to Shadi who states he will go to pt father's apartment right now and will assist him in calling this SW. Return call from Brooke at [facility] and different number provided to father however SW called and this is also a non working number. Physician updated. Received phone call from pt father Jeromy Cruz and his correct number is [phone]. Phone given to Dr. Henson who will speak with pt father regarding patient. Demographic sheet updated. COLIN Vincent
--- NOTE | 2019-07-26 09:40 | NURSING ---
Propofol restarted along w/ paralytic at 0940 at 10 mcg/kg/min; fentanyl restarted at 5 mcg/kg/min per Dr. Henson verbal order
--- NOTE | 2019-07-26 09:50 | NURSING ---
Propofol on hold d/t hypotension
--- NOTE | 2019-07-26 10:11 | CASEMGMT ---
Social Work Return call to pt father Jeromy Loyola and received VM. SW left message with number to the ICU should he want to check on pt condition. Phone call to Brittany Zaragoza DD Calender Roll Press Operator and updated her that pt father was contacted and provided Brittany with contact phone number. Phone call to [facility] and clinical update given and information faxed. COLIN Vincent
--- NOTE | 2019-07-26 10:15 | NURSING ---
Propofol restarted at 10 mcg/kg/min per Dr. Henson verbal order. 2 twitches noted via nerve stimulater.
[2019-07-26] MEDS: Lansoprazole 15 MG Capsule.DR 30 MG NG (11:00)
[2019-07-26] MEDS: Furosemide 40 MG/4 ML Vial IV (11:00)
[2019-07-26] MEDS: Hydrocortisone Sod Succinate 100 MG/2 ML Vial 50 MG IV (11:00)
[2019-07-26] MEDS: Propofol 10MG/Ml 1,000 MG/100 ML Bottle 5.8 MG CONT INF (11:00)
[2019-07-26 11:20] LABS: Base Excess -7 mmol/L (-2 to +2); Bicarbonate 18.7 mmol/L (22-26); PO2 103 mmHG (75-100); SO2 98 % (95-99); Total Carbon Dioxide 20 mmol/L; pCO2 33.9 mmHg (35-45); pH 7.35 (7.35-7.45)
[2019-07-26 12:13] LABS: Glucose 209 mg/dL (74-106)
[2019-07-26 12:22] LABS: Blood Gas Specimen Type ALINE; FI02 100; Mode A-C; O2 Delivery Device Vent; PEEP 20; RR 14; SITE L RADIAL; Time Given 1000; Vt 450
[2019-07-26 14:05] LABS: Partial Thromboplast Time > 250.0 Seconds (24.1-36.2)
--- NOTE | 2019-07-26 14:34 | NURSING ---
Called pt's father, Jeromy Cruz, and notified him of pt . Father does not confirm home information at this time. This RN relayed that staff would be in contact throughout the day in order to determine the plan of care for pt's body.
--- NOTE | 2019-07-26 14:55 | CHAPLAIN ---
Type of Pastoral Visit ___ Initial Visit ___ Follow-up Visit ___ On-call Visit ___ General Patient Visit ___ Spiritual Assessment ___ Family Conference ___ Bereavement ___ Rapid Response ___ Code Blue _x__ Other (describe below) Pastoral Care Referral From ___ Patient ___ Family ___ Nurse ___ Physician ___ Commercial Artist Lettering ___ Oxygen Equipment Technician _x__ Other (describe below) Sacrament/Intervention ___ Active listening ___ Anointing ___ Lutheran ___ Bereavement ___ Communion ___ Juany exploration ___ ___ Life review _x__ Prayer ___ Reconciliation ___ Sacrament of Sick ___ Supportive presence ___ Wedding _x__ Other (describe below) Pastoral Comments During rounds - patient is end of life and in isolation - no family present - offered silent prayer and support for staff from nurses station
--- NOTE | 2019-07-26 15:30 | NURSING ---
Tried to call pt's father back to determine home information. NO answer at this time.
--- NOTE | 2019-07-26 16:30 | PCM.DEATH ---
Preliminary Cause of Acute hypoxic respiratory failure, ARDS, HCAP vs COVID-19, Septic Shock Date of Admission: 07/25/19 Date of : 07/26/19 - 14:08 - Principle Diagnosis 1. Acute hypoxemic respiratory failure 2/2 ARDS due to possible HCAP versus Suspected COVID-19 infection 2. Septic shock due to underlying pulmonary infectious etiology as noted #1 3. Encephalopathy with concern for anoxic etiology 4. Acute kidney injury likely secondary to ischemic ATN in the setting of septic shock and #1 5. Status post PEA cardiac arrest/non-ST segment elevation NE 6. Diabetes mellitus type II 7. Hypertension 8. Hyperlipidemia 9. GERD Problem List: Active and Suspected Problems (Last Reviewed 07/25/19 @ 23:[address] Talib Trujillo MD) Severe sepsis (Acute) Bilateral pneumonia (Acute) Acute kidney injury (Acute) Suspected COVID-19 virus infection (Acute) Hypoxemia (Acute) Hospital Course The patient is a 43 y/o M w/ PMHx: Diabetes mellitus type II, GERD, HTN, HLD who presented to the [facility] ED on 07/25/19 from [facility] where he had been residing following R great toe amputation at [facility] with unfortunate onset progressively worsening dyspnea, hypoxia, fevers, nonproductive cough as well as hemoptysis prompting eventual ED presentation. In the ED evaluation included T101.8, tachycardia, tachypnea with initial placement nasal cannula with initial laboratory values significant for leukocytosis with thrombocytopenia and elevated d-dimer 1.14 in addition to evidence of acute kidney injury and lactic acidosis. Ferritin, LDH were both also obtained and were elevated. Initial troponin indeterminate with 0.298. BNP also obtained and noted be 1792. Chest x-ray also obtained with diffuse bilateral airspace disease as well as confluence in the right lower lobe. While in the emergency room patient's sedation requirements escalated and patient was placed on airvo. In the ED patient had received azithromycin and Rocephin. Patient with transition to the ICU and overnight decompensated requiring intubation at 2 AM secondary to impending respiratory failure and approximately 45 minutes following patient had cardiac arrest with PEA with initiation of ACLS with spontaneous return of circulation after approximately 20 minutes. Patient had recurrent PEA with cardiac arrest 20 minutes later with repeat ACLS and again resumption of circulation after approximately 10 minutes. Patient had been transitioned to vancomycin and Zosyn and placed on Levophed and vasopressin, maxed on both. Attempts for central line overnight were not successful. Significant concerns for anoxic brain injury. Eventually patient's father was contacted as it was difficult to ascertain family member history. Father was made aware of the severity of his state and requested his CODE STATUS be changed to DNR CCA. Patient had a recurrent cardiac arrest with PEA and passed at 14:08 on 07/25/29. COVID lab still pending at time of ; however, given presentation and given residing at [facility] high suspicion.
[2019-07-26 16:36] LABS: Bedside Glucose 208 mg/dL (70-110)
--- NOTE | 2019-07-26 16:45 | NURSING ---
Lynnette Fung and Brent called. They are requesting to pick pt up tomorrow morning. Border Patrol Officer made aware.
--- NOTE | 2019-07-26 16:48 | NURSING ---
Bharti Monroy called into unit ([facility] at [facility]). Update given that pt .
[2019-07-27 07:21] LABS: Allen Test POS; Blood Gas Specimen Type ART; SITE R RADIAL
[2019-07-27 07:22] LABS: FI02 75; Mode AIRVO
[2019-07-27 07:24] LABS: Time Given 2050
[2019-07-27 07:25] LABS: PO2 82 mmHG (75-100); pCO2 30.3 mmHg (35-45); pH 7.46 (7.35-7.45)
[2019-07-27 07:27] LABS: Base Excess -3 mmol/L (-2 to +2); Bicarbonate 21.3 mmol/L (22-26); SO2 97 % (95-99); Total Carbon Dioxide 22 mmol/L
== END 2019-07-26 14:08 | DRG 871 ==
LOC: ED 19:28 → ICU 20:51
PROVIDERS: Internal Medicine Critical Care Medicine; Admitting Provider Hospitalist; Emergency Provider Emergency Medicine; PCP Internal Medicine; Visit Provider Family Medicine
DX: A41.9 Sepsis, unspecified organism (principal); R65.21 Severe sepsis with septic shock; J12.89 Other viral pneumonia; U07.1 COVID-19; J80 Acute respiratory distress syndrome; N17.0 Acute kidney failure with tubular necrosis; I21.A1 Myocardial infarction type 2; G93.40 Encephalopathy, unspecified; E11.21 Type 2 diabetes mellitus with diabetic nephropathy; E11.65 Type 2 diabetes mellitus with hyperglycemia; Z89.411 Acquired absence of right great toe; I46.9 Cardiac arrest, cause unspecified; F70 Mild intellectual disabilities; Z66 Do not resuscitate; E78.5 Hyperlipidemia, unspecified; K21.9 Gastro-esophageal reflux disease without esophagitis; I10 Essential (primary) hypertension
CPT/HCPCS: 31720; 36600; 71045; 74018; 80048; 80053; 81001; 82550; 82728; 82803; 82947; 82962; 83605; 83615; 83880; 84145; 84478; 84484; 85025; 85379; 85610; 85730; 87040; 87070; 87086; 87088; 87205; 87449; 87633; 87635; 92950; 93005; 94002; 94660; 96361; 96374; 99285; J7030; J7040; J7050; A4216; C1751; J0696; J1940; J2405; J3475; J3490; U0004